=== PATIENT | female | born 1950 | race Caucasian/White ===

== ENCOUNTER → 2016-05-23 | Outpatient (CLI) | payer BC, OTHER ==
[~2016-05-23] MED LIST: AMLO-110 PO; ASPEC81 PO; ATEN-173 PO; ATOR10TA88 PO; ATV1 PO; CLOP1TAB15 PO; GLC5 PO; GLC500 PO; GLIP10TA9 PO; GLIP5TAB3 PO; INSDGI SC; ISOS30TA3 PO; KFL500 PO; LEVO75TA5 PO; LISI-725 PO; LPT/40 PO; METF-384 PO; METO50TA16 PO; MRLP17 PO; MTR600X PO; NRN300 PO; NVLGIPEN SC; RXC5 PO; TNR50 PO; TRAMTAB5 PO; ZNTT/150 PO
[2016-05-23 13:31] LABS: ESTIMATED AVERAGE GLUCOSE 226 mg/dl; HA1C FLAG Normal (Normal)
[2016-05-23 14:04] LABS: ALT/SGPT 33 U/L (12-78); AST/SGOT 18 U/L (15-37); BLOOD UREA NITROGEN 14 mg/dl (7-18); CALCIUM 9.7 mg/dl (8.5-10.1); CARBON DIOXIDE 27 mmol/L (21-32); CHLORIDE 103 mmol/L (98-107); CREATININE 0.79 mg/dl (0.60-1.20); GLUCOSE 177 mg/dl (70-99); POTASSIUM 4.2 mmol/L (3.5-5.1); SODIUM 138 mmol/L (136-145)
[2016-05-23 14:15] LABS: CHOLESTEROL 182 mg/dl (0-200); CHOLESTEROL/HDL RATIO 2.7; HDL CHOLESTEROL 68 mg/dl; TRIGLYCERIDES 92 mg/dl (0-150); VERY LOW DENSITY LIPOPROT CALC 18 mg/dl
== END | disposition home or self-care (01) ==
LOC: C.LABMFLN 11:27
PROVIDERS: ATTEND Family Medicine
DX: E11.9 Type 2 diabetes mellitus without complications (principal); I10 Essential (primary) hypertension

== ENCOUNTER → 2016-09-06 | Outpatient (CLI) | payer OTHER ==
[~2016-09-06] MED LIST changes: +ATOR10TA82 PO; -ATOR10TA88 PO
[2016-09-06 13:32] LABS: HEMATOCRIT 35.5 % (37-47); MEAN CELL VOLUME 84.5 fL (80-100); MEAN CORPUSCULAR HEMOGLOBIN 28.3 pg (25-34); MEAN CORPUSCULAR HGB CONC 33.5 g/dl (32-36); PLATELET COUNT 273 K/uL (130-400); WHITE BLOOD COUNT 3.99 K/uL (4.8-10.8)
[2016-09-06 13:36] LABS: ESTIMATED AVERAGE GLUCOSE 186 mg/dl; HA1C FLAG Normal (Normal)
[2016-09-06 14:22] LABS: BLOOD UREA NITROGEN 14 mg/dl (7-18); BUN/CREATININE RATIO 15.9 (10-20); CARBON DIOXIDE 26 mmol/L (21-32); CHLORIDE 105 mmol/L (98-107); CREATININE 0.85 mg/dl (0.60-1.20); GLUCOSE 111 mg/dl (70-99); POTASSIUM 4.2 mmol/L (3.5-5.1); SODIUM 142 mmol/L (136-145)
[2016-09-06 14:30] LABS: CALCIUM 9.7 mg/dl (8.5-10.1)
[2016-09-06 14:54] LABS: THYROID STIMULATING HORMONE 0.241 uIu/ml (0.300-4.500)
--- NOTE | 2016-09-11 13:29 | CODING QUERY MEDICAL NECESSITY ---
SUPPORTING DIAGNOSIS NEEDED A supporting diagnosis is required for the test/procedure performed on this patient in order for us to be reimbursed by the patient's insurance. Please provide a supporting diagnosis for the following test/procedure listed below next to the test name along with your signature. *If there is no additional diagnosis for this patient that would support the following test/procedure please document that below next to the test/procedure. Test(s)/Procedure(s) that require a supporting diagnosis: * VITAMIN B12 DIAGNOSIS: Provider Signature: Date: Thank you Christina [place] [employer] Once completed, please kindly fax back to [phone] For questions please call [phone]
== END | disposition home or self-care (01) ==
LOC: C.LABMFLN 07:07
PROVIDERS: ATTEND Family Medicine
DX: E11.9 Type 2 diabetes mellitus without complications (principal); R53.83 Other fatigue; E55.9 Vitamin D deficiency, unspecified

== ENCOUNTER 2016-12-10 07:11 | Inpatient (IN) | payer OTHER ==
[2016-11-20 10:07] VITALS: BMI 29.0
--- NOTE | 2016-11-20 10:37 | PAT Medication Instructions ---
Service Date Nov 20, 2016. Current Home Medication List Amlodipine (Norvasc), 5 MG PO HS Aspirin Enteric Coated (Ecotrin Or Generic *), 81 MG PO QAM Atenolol (Atenolol), 50 MG PO HS Atorvastatin (Lipitor), 40 MG PO HS Glipizide (Glucotrol *), 5 MG PO HS Insulin Glargine (Lantus), 24 UNITS SC QPM Levothyroxine Sodium (Levothyroxine Sodium), 1 TAB PO QAM Lisinopril (Zestril), 20 MG PO HS Metformin Hcl (Glucophage), 1,000 MG PO BID Ranitidine (Zantac), 150 MG PO BID Tramadol/Acetaminophen (Ultracet), 1 TAB PO DAILY PRN for Pain Medication Instructions For Your Scheduled Surgery - Hold the following medications 48 hours prior to surgery: Metformin Hcl (Glucophage), 1,000 MG PO BID - Hold the following medications the morning of surgery: Ranitidine (Zantac), 150 MG PO BID - Take the following medications the morning of surgery with a sip of water: Amlodipine (Norvasc), 5 MG PO HS Aspirin Enteric Coated (Ecotrin Or Generic *), 81 MG PO QAM Levothyroxine Sodium (Levothyroxine Sodium), 1 TAB PO QAM Tramadol/Acetaminophen (Ultracet), 1 TAB PO DAILY PRN for Pain (okay to take up to 4 hours prior to surgery if needed) - Hold the following medications as scheduled the night before surgery: Lisinopril (Zestril), 20 MG PO HS - Take the following medications as scheduled the night before surgery: Atenolol (Atenolol), 50 MG PO HS Atorvastatin (Lipitor), 40 MG PO HS Glipizide (Glucotrol *), 5 MG PO HS Insulin Glargine (Lantus), 24 UNITS SC QPM Ranitidine (Zantac), 150 MG PO BID Tramadol/Acetaminophen (Ultracet), 1 TAB PO DAILY PRN for Pain (if needed) If you have any questions please call us at [phone] or [phone] or [phone]
--- NOTE | 2016-11-20 11:22 | DIAGNOSTIC IMAGING REPORT ---
CHEST PREADMISSION(PA/LAT) CLINICAL HISTORY: 65 years-old Female presenting with preoperative examination. TECHNIQUE: PA and lateral views of the chest were obtained. COMPARISON: 09/12/2007. FINDINGS: Cardiomediastinal silhouette normal. Coronary stents noted. Lungs and pleural spaces clear. Osseous structures normal. Upper abdomen normal. IMPRESSION: 1. No acute cardiopulmonary disease. Electronically signed by: Darryl Donovan M.D. 11/20/2016 11:20 AM Dictated Date/Time: 11/20/2016 11:20 AM
[2016-11-20 11:31] LABS: BASO % 0.5 %; BASO ABS # 0.02 K/uL (0-0.2); COMPLETE YES; EOS % 4.4 %; HEMATOCRIT 35.3 % (37-47); IG% 0.3 %; LYMPH % 23.3 %; LYMPH ABS # 0.91 K/uL (1.2-3.4); MEAN CELL VOLUME 85.3 fL (80-100); MEAN CORPUSCULAR HEMOGLOBIN 29.5 pg (25-34); MEAN CORPUSCULAR HGB CONC 34.6 g/dl (32-36); MEAN PLATELET VOLUME 8.8 fL (7.4-10.4); MONO % 7.2 %; NEUT % 64.3 %; PLATELET COUNT 260 K/uL (130-400); RED BLOOD COUNT 4.14 M/uL (4.2-5.4)
[2016-11-20 11:37] LABS: URINE APPEARANCE CLEAR (CLEAR); URINE BILIRUBIN NEG (NEG); URINE COLOR YELLOW; URINE NITRITE POS (NEG); URINE PH 5.5 (4.5-7.5); URINE SPECIFIC GRAVITY 1.018 (1.000-1.030); UROBILINOGEN NEG (NEG); ZZUR CULT IF INDIC CLEAN CATCH YES
[2016-11-20 11:43] LABS: MANUAL MICROSCOPIC REQUIRED? NO; REVIEW REQ? NO
[2016-11-20 11:53] LABS: BUN/CREATININE RATIO 13.7 (10-20); CALCIUM 9.4 mg/dl (8.5-10.1); CREATININE 0.88 mg/dl (0.60-1.20); POTASSIUM 4.7 mmol/L (3.5-5.1)
[2016-12-10] VITALS (10 sets, daily range): BP systolic 126–179; BP diastolic 66–95; PULSE 75–93; TEMP 34.7–36.8; O2SAT 98–100; Ht 167.6 cm; Wt 83.6 kg
[~2016-12-10] VITALS: Ht 167.6 cm; Wt 83.6 kg
[~2016-12-10 07:11] MED LIST changes: -ATEN-173 PO; -ATOR10TA82 PO; -ATV1 PO; +CEFAZOLIN 2000 MG/60 ML D5W 60 ML IV SCH; -CLOP1TAB15 PO; -GLC500 PO; -GLIP10TA9 PO; -GLIP5TAB3 PO; -ISOS30TA3 PO; -KFL500 PO; +LACTATED RINGER'S 1000ML 1,000 ML IV SCH; -METO50TA16 PO; -MRLP17 PO; -MTR600X PO; -NRN300 PO; -NVLGIPEN SC; -RXC5 PO
[2016-12-10] MEDS ORDERED: EpHEDrine SULFATE INJ 50 MG/ML AMP IV PRN (08:00)
[2016-12-10] MEDS ORDERED: ONDANSETRON INJ 2 MG/ML 2 ML VIAL IV PRN ×2 (08:00→11:15)
[2016-12-10] MEDS ORDERED: MoRPHine SULFATE 10 MG/ML CARP/VIAL IV PRN (08:00)
[2016-12-10] MEDS ORDERED: LABETALOL HCL IV 5 MG/ML 20ML IV PRN (08:00)
[2016-12-10] MEDS ORDERED: ATROPINE SULFATE 0.1 MG/ML 5ML SYR IV PRN (08:00)
[2016-12-10] MEDS ORDERED: PHENYLEPHRINE 100MCG/ML 5ML SYR IV PRN (08:00)
[2016-12-10] MEDS ORDERED: NALOXONE HCL 0.4 MG/1 ML VIAL/CARP IV PRN ×3 (08:00→11:15)
[2016-12-10] MEDS ORDERED: FLUMAZENIL 0.1 MG/1 ML 10 ML VIAL IV PRN (08:00)
[2016-12-10] MEDS ORDERED: MEPERIDINE HCL 25 MG/ML CARP IV PRN (08:00)
[2016-12-10] MEDS ORDERED: HYDROmorphone INJ 1 MG/ML SYR IV PRN (08:00)
[2016-12-10] MEDS ORDERED: FENTANYL CITRATE INJ 50 MCG/1 ML 2 ML VIAL ONE ×3 (08:09→10:17)
[2016-12-10] MEDS ORDERED: MIDAZOLAM HCL 1 MG/ML 2ML VIAL ONE (08:09)
[2016-12-10] MEDS ORDERED: NovoLIN-R INSULIN PER UNIT CHARGE ONE ×2 (08:19→09:11)
[2016-12-10] MEDS ORDERED: INSULIN HUMAN REGULAR SC ONE (08:30)
--- NOTE | 2016-12-10 08:33 | History & Physical Bridge Note ---
H&P Re-Evaluation Bridge Note: I have examined the patient, reviewed the History & Physical and in the interval since the performance of the History & Physical I have noted the following changes of clinical significance: No changes noted
--- NOTE | 2016-12-10 08:34 | History and Physical ---
History & Physical Date Dec 10, 2016. Chief Complaint Back and leg pain History of Present Illness The patient is a 65 year old female with complaints of chronic back and leg pain Additional History Hepatic Disease: No Endocrine Disorder: No Kidney Disease: No Hypertension: Yes Heart Disease: No Bleeding Tendencies: No Infectious Diseases: No Allergies Coded Allergies: No Known Allergies (Verified , 11/20/16) Home Medications Scheduled Amlodipine (Norvasc), 5 MG PO HS Aspirin Enteric Coated (Ecotrin Or Generic *), 81 MG PO QAM Atenolol (Atenolol), 50 MG PO HS Atorvastatin (Lipitor), 40 MG PO HS Glipizide (Glucotrol *), 5 MG PO HS Insulin Glargine (Lantus), 24 UNITS SC QPM Levothyroxine Sodium (Levothyroxine Sodium), 1 TAB PO QAM Lisinopril (Zestril), 20 MG PO HS Metformin Hcl (Glucophage), 1,000 MG PO BID Ranitidine (Zantac), 150 MG PO BID Scheduled PRN Tramadol/Acetaminophen (Ultracet), 1 TAB PO DAILY PRN for Pain Physical Examination Skin: warm/dry, no rash Eyes: normal inspection, EOMI, sclerae normal ENT: normal ENT inspection, pharynx normal Head: normocephalic, atraumatic Neck: supple, no adenopathy, trachea midline Respiratory/Chest: lungs clear, normal breath sounds, no respiratory distress Cardiovascular: regular rate, rhythm, no edema, no murmur Abdomen / GI: normal bowel sounds, non tender Back: normal inspection Extremities: normal inspection, normal range of motion Neurologic/Psych: no motor/sensory deficits, alert, normal reflexes, oriented x 3 Diagnosis Lumbar spinal stenosis Plan of Treatment Lumbar decompression and fusion L34 L4 5.
[2016-12-10] MEDS ORDERED: BACITRACIN 50000 UNIT VIAL ONE (08:47)
[2016-12-10] MEDS ORDERED: BUPIVACAINE/EPINEPHRINE 0.5% MPF 1:200,000 30 ML VIAL ONE (08:47)
[2016-12-10] MEDS ORDERED: HYDROmorphone INJ 2 MG/ML SYR/VIAL ONE ×2 (09:27→11:18)
[2016-12-10] MEDS ORDERED: LIDOCAINE HCL 2% 2 ML VIAL (20MG/ML) ONE (11:05)
[2016-12-10] MEDS ORDERED: ROCURONIUM BROMIDE 10 MG/ML 5 ML VIAL IV ONE (11:05)
[2016-12-10] MEDS ORDERED: PROPOFOL IV EMULSION 10 MG/ML 20 ML VIAL IV ONE (11:05)
[2016-12-10] MEDS ORDERED: DEXAMETHASONE SOD INJ 4 MG/ML VIAL ONE (11:05)
[2016-12-10] MEDS ORDERED: ONDANSETRON INJ 2 MG/ML 2 ML VIAL ONE ×2 (11:05→11:18)
[2016-12-10] MEDS ORDERED: FLOSEAL HEMOSTATIC MATRIX 10ML TOP ONE (11:11)
[2016-12-10] MEDS ORDERED: SODIUM CHLORIDE 0.9% 1000ML 1,000 ML IV SCH (11:11)
[2016-12-10] MEDS ORDERED: MAGNESIUM HYDROXIDE SUSP 30 ML UDC PO PRN (11:15)
[2016-12-10] MEDS ORDERED: ACETAMINOPHEN IV 100 ML IV PRN (11:15)
[2016-12-10] MEDS ORDERED: hydrOXYzine HCL 25 MG TAB PO PRN (11:15)
[2016-12-10] MEDS ORDERED: ACETAMINOPHEN 500 MG TAB PO PRN (11:15)
[2016-12-10] MEDS ORDERED: BISACODYL 10 MG SUPP PR PRN (11:15)
[2016-12-10] MEDS ORDERED: DO NOT ADMINISTER FLU VACCINE PRN ×3 (11:15)
[2016-12-10] MEDS ORDERED: ALUMINUM/MAGNESIUM SUSP 30 ML UDC PO PRN (11:15)
[2016-12-10] MEDS ORDERED: PROMETHAZINE HCL INJ 12.5 MG in SODIUM CHLORIDE 0.9% 50ML 50 ML IV PRN (11:15)
[2016-12-10] MEDS ORDERED: LORAZEPAM 0.5 MG TAB PO PRN (11:15)
[2016-12-10] MEDS ORDERED: LORAZEPAM INJ 0.5 MG in SYRINGE 0.75 ML IV PRN (11:15)
[2016-12-10] MEDS ORDERED: METOCLOPRAMIDE HCL INJ 5 MG/ML 2 ML VIAL IV PRN (11:15)
[2016-12-10] MEDS ORDERED: DO NOT ADMINISTER PNEUMOCOCCAL VACCINE PRN ×2 (11:15)
[2016-12-10] MEDS ORDERED: FAMOTIDINE 20 MG TAB PO PRN (11:15)
[2016-12-10] MEDS ORDERED: SOD PHOSPHATE/SOD BIPHOSPHATE ENEMA 132 ML BTL PR PRN (11:15)
[2016-12-10] MEDS ORDERED: KETOROLAC TROMETHAMINE 30 MG/ML VIAL ONE (11:18)
[2016-12-10] MEDS ORDERED: GLYCOPYRROLATE INJ 0.2 MG/ML VIAL ONE (11:18)
[2016-12-10] MEDS ORDERED: NEOSTIGMINE METHYLSULFATE 1 MG/ML 10ML VIAL ONE (11:18)
[2016-12-10] MEDS ORDERED: PHENYLEPHRINE 100MCG/ML 5ML SYR ONE (11:18)
[2016-12-10] MEDS ORDERED: EpHEDrine SULFATE 50MG/5ML SYR ONE (11:18)
--- NOTE | 2016-12-10 11:18 | [facility] Operative Report ---
Operative Report Operative Date Dec 10, 2016. Pre-Operative Diagnosis Lumbar Spinal Stenosis Post-Operative Diagnosis Lumbar Spinal Stenosis Procedure(s) Performed #1 lumbar decompression medial facetectomies foraminotomies L2 3 L3 4 L4 5. #2 posterior spinal fusion L3 4 L4 5. #3 placement of posterior segmental instrumentation L3 4 L4 5. #4 interbody fusion L3 4 L4 5. #5 placement peek cage 12 x 22 mm at L3 4 and L4 5. #6 placement of locally harvested morcellized autograft in the posterior lateral gutters. #7 placement of ostial amp bone graft in the interbody space and posterior lateral gutters. Surgeon Senior Art Director Surgeon(s) Isabella Auguste Estimated Blood Loss 275 ml Findings Severe spinal stenosis with spondylolisthesis Specimens None per surgeon Description of Procedure Patient was met with preoperative early case discussed all questions are dressed. After informed consent patient was taken to the operative suite and intubated and placed in the prone position the Joseph table on top of the Primo frame. All bony prominences were inspected to ensure no external pressure. Lumbar spines prepped and draped nostril fashion. Sharp dissection with the assistance of Bovie cautery was performed onto an exposing the lamina and transverse processes of L3 L4-L5 bilaterally. From a caudal to cephalad fashion complete laminectomy of L4 L3 partial laminectomy of L2 was performed addressing severe lateral recess and foraminal disease. Pedicle screws were then placed in L3 L4-L5 bilaterally with the assistance of fluoroscopy and the probably size niko placed. Through a transforaminal approach on the right compete discectomy of L4 5 was performed and plate created subcortical bleeding bone and a 12 x 22 mm peek cage filled with ostial amp tapped in position. Then proceeded L3 4 and again through a transforaminal approach on the right complete discectomy was performed and plate created to subcortical bleeding bone and a 12 x 22 mm peek cage filled with ostial amp tapped in position. Brought to then locked and final position bilaterally. The transverse processes of L3 L4-L5 burred to subcortical bleeding bone. Remaining ostial amp locally harvested morcellized autograft was placed and posterior gutters. 15 round TELLO drain inserted. Incision was then closed with 1 Vicryl in the fascia 2-0 Vicryl subcutaneous C 4 Monocryl for final skin closure. Steri- Strips sterile dressing placed. Patient we can taken to PACU stable condition. Please note Isabella Boucher was present at the entire procedure involved in patient positioning complex portions of the surgery and final skin closure. I attest to the content of the Intraoperative Record and any orders documented therein. Any exceptions are noted below.
[2016-12-10] MEDS ORDERED: PHARMACY GLYCEMIC MGMT CONSULT PRN (11:22)
[2016-12-10] MEDS ORDERED: HYDROmorphone HCL 0.5MG/ML 50 ML CASSETTE ONE (11:34)
[2016-12-10] MEDS ORDERED: ESMOLOL HCL 10 MG/ML 10 ML VIAL ONE (11:36)
[2016-12-10] MEDS ORDERED: INSULIN GLARGINE SOLOSTAR 100 UNITS/ML 3 ML PEN SC ONE (11:45)
--- NOTE | 2016-12-10 12:05 | Anesthesiology Progress Note ---
Anesthesia Post Op Note Date & Time Dec 10, 2016 at 12:01 Vital Signs Pain Intensity: 0 Vital Signs Past 12 Hours Date Time Temp Pulse Resp B/P (MAP) Pulse Ox O2 Delivery O2 Flow Rate FiO2 12/10/16 11:55 85 14 156/82 99 Oxymask 3 12/10/16 11:45 85 14 170/69 99 Oxymask 10 12/10/16 11:35 85 14 166/73 100 Oxymask 10 12/10/16 11:29 36.4 101 14 166/84 100 Oxymask 10 12/10/16 07:20 36.8 75 20 179/95 98 Room Air Notes Mental Status: alert / awake / arousable, participated in evaluation Pt Amnestic to Procedure: Yes Nausea / Vomiting: adequately controlled Pain: adequately controlled Airway Patency, RR, SpO2: stable & adequate BP & HR: stable & adequate Hydration State: stable & adequate Anesthetic Complications: no major complications apparent The patient did well. She was given 3 units reg insulin SC for BSG 201. Her BSG then went to 220 so she was given 4 units regular insulin IV. A recheck in the OR found it to be 181. In the PACU her BSG went back to 220. She will be on the pharmacy's insulin protocol. 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
--- NOTE | 2016-12-10 12:10 | DIAGNOSTIC IMAGING REPORT ---
INTRAOPERATIVE LUMBAR SPINE 2 VIEWS CLINICAL HISTORY: L3-L5 DECOMPRESSION AND FUSION COMPARISON STUDY: No previous studies for comparison. FINDINGS: 2 intraoperative fluoroscopic spot images are provided for interpretation. 21 seconds of fluoroscopic time was utilized. There are postsurgical changes of an L3-4 and L4-5 discectomy and interbody fusion. There is posterior decompression and pedicle screw fixation with bilateral pedicle screws at the L3, L4, and L5 levels. IMPRESSION: Postsurgical changes as described above. Electronically signed by: Josué Covarrubias M.D. 12/10/2016 12:09 PM Dictated Date/Time: 12/10/2016 12:08 PM
[2016-12-10] MEDS: LACTATED RINGER'S 1000ML 1,000 ML IV SCH ×2 (13:03→18:25)
--- NOTE | 2016-12-10 14:52 | Pharmacy Progress Note ---
Glycemic Control Intl Consult Date of Service Dec 10, 2016. Scope Glycemic Pharmacist consulted by Dr Lopez on 12/10/16 for glycemic control and to write orders per [facility] inpatient glycemic control protocol Objective Weight (Kilograms): 83.600 Accuchecks BSG (last 24hrs): Test 12/10/16 07:32 12/10/16 08:58 12/10/16 10:42 12/10/16 11:46 Bedside Glucose 201 mg/dl (70-90) 221 mg/dl (70-90) 181 mg/dl (70-90) 221 mg/dl (70-90) Recent Pertinent Medications Outpatient Anti-diabetic Regimen: * Lantus 24 units qPM + glipizide 5 mg qHS + metformin 1 gm PO BID * A1c = 8.1 % 09/06/16 Risk Factors for Insulin Resistance: * Steroids: dexamethasone 8 mg IV intraoperatively then dexamethasone 6 mg IV q8 hours x 3 doses * Recent Surgery: POD 0 for lumbar surgery * Diet: type 2 diabetic diet Assessment & Plan ASSESSMENT: * ADA & AACE recommend a goal blood sugar range 140-180 mg/dl for the majority of critically ill & non-critically ill patients. However, more stringent targets may be selected in individual cases. Will utilize more stringent goal of 110-140mg/dl based on patient age & comorbidities. Additionally, tighter glycemic control is warranted to facilitate wound healing. * Ms Joseph is a 65 y/o F admitted 12/10/16 for lumbar surgery. She has a PMH of diabetes that is relatively well controlled. Her blood sugar prior to surgery was 221 mg/dL and she received 7 units of SQ insulin. After surgery, her blood sugar was 181 mg/dL. 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 * Since the patient's blood sugars were already elevated, a full 24 hour weight based stress of 3 Lantus dose was given right after surgery with a sliding scale scheduled for the evening (includes doses for weight based stress of 1,2, and 3 based upon blood sugars). A morning Lantus dose will be scheduled based upon the patient's needs as currently it is unclear. * For Novolog parameters, weight-based stress of 3 was chosen along with overnight Accuchecks. Oral medications will be held. PLAN FOR INPATIENT GLYCEMIC CONTROL: * Holding outpatient oral diabetes medications * Basal insulin with LANTUS 40 units SQ x 1 then Lantus 10-20 units tonight (10 units if blood sugar less than 100 mg/dL; 15 units if blood sugar 100-160 mg/dL ; 20 units if blood sugar greater than 160 mg/dL) * Correctional Insulin with NOVOLOG per scale ACHS or Q6hrs while NPO * Goal Range: Low 110 mg/dL - High 140 mg/dL * Correction Factor: 20 mg/dL/unit * Nutritional / Prandial insulin per carb ratio of 1 unit per 6 grams CHO consumed * Please note that the plan above was derived based on current level of insulin resistance and hospital stress. These recommendations are appropriate for inpatient admission only. Plan of care upon discharge will need to be reassessed to avoid potential outpatient hypo/hyperglycemia. Thank you.
[2016-12-10] MEDS: HYDROmorphone HCL 0.5MG/ML 50 ML CASSETTE IV PRN ×2 (15:17→23:16)
[2016-12-10] MEDS: INSULIN ASPART 100 UNITS/ML 3 ML PEN SC SCH ×3 (15:30→21:08)
[2016-12-10] MEDS: CEFAZOLIN IV 2,000 MG in DEXTROSE 5% 50ML 50 ML IV SCH (15:45)
[2016-12-10] MEDS ORDERED: INSULIN HUMAN REGULAR IV BOLUS 5 UNIT in SYRINGE 0 ML IV ONE (18:00)
[2016-12-10] MEDS: DOCUSATE SODIUM/SENNA 50/8.6MG TAB PO SCH (20:57)
[2016-12-10] MEDS: ATORVASTATIN 40 MG TAB PO SCH (20:58)
[2016-12-10] MEDS: DEXAMETHASONE INJ 6 MG in SYRINGE 0 ML IV SCH (20:58)
[2016-12-10] MEDS: AMLODIPINE BESYLATE 5 MG TAB PO SCH (20:58)
[2016-12-10] MEDS: RANITIDINE HCL 150 MG TAB PO SCH (21:01)
[2016-12-10] MEDS: LISINOPRIL 20 MG TAB PO SCH (21:01)
[2016-12-10] MEDS: INSULIN GLARGINE SOLOSTAR 100 UNITS/ML 3 ML PEN SC SCH (21:09)
[2016-12-10] MEDS ORDERED: COUGH DROP (SUGAR FREE) LOZ 24 LOZ/1 BOX PO PRN (22:15)
[2016-12-11] MEDS: CEFAZOLIN IV 2,000 MG in DEXTROSE 5% 50ML 50 ML IV SCH (00:26)
[2016-12-11] MEDS: LACTATED RINGER'S 1000ML 1,000 ML IV SCH (00:27)
[2016-12-11] MEDS: INSULIN ASPART 100 UNITS/ML 3 ML PEN SC SCH ×5 (00:29→18:47)
[2016-12-11 03:15] VITALS: BP 126/72; PULSE 73; TEMP 36.5; O2SAT 99
[2016-12-11] MEDS: DEXAMETHASONE INJ 6 MG in SYRINGE 0 ML IV SCH ×2 (04:18→11:58)
[2016-12-11] MEDS ORDERED: NURSING VERBAL MED ORDER ONE (05:30)
[2016-12-11] MEDS: LEVOTHYROXINE 75 MCG TAB PO SCH (05:40)
[2016-12-11] MEDS: OXYCODONE HCL IR 5 MG TAB (IMMEDIATE RELEASE) PO PRN ×3 (05:54→21:10)
[2016-12-11 05:55] LABS: COMPLETE YES; HEMATOCRIT 25.5 % (37-47); IG% 0.3 %; LYMPH % 6.6 %; MEAN CELL VOLUME 82.8 fL (80-100); MEAN CORPUSCULAR HEMOGLOBIN 29.9 pg (25-34); MEAN CORPUSCULAR HGB CONC 36.1 g/dl (32-36); MONO % 4.2 %; NEUT % 88.9 %; PLATELET COUNT 212 K/uL (130-400); RED BLOOD COUNT 3.08 M/uL (4.2-5.4); WHITE BLOOD COUNT 7.57 K/uL (4.8-10.8)
[2016-12-11] MEDS ORDERED: TRAMADOL/ACETAMINOPHEN 37.5/325MG TAB PO PRN (06:00)
[2016-12-11] MEDS ORDERED: HYDROmorphone INJ 0.5 MG/0.5 ML SYR IV PRN (06:00)
[2016-12-11] MEDS ORDERED: DC PCA ONE (06:00)
[2016-12-11 06:28] LABS: BUN/CREATININE RATIO 26.7 (10-20); CALCIUM 8.9 mg/dl (8.5-10.1); CREATININE 0.63 mg/dl (0.60-1.20); POTASSIUM 4.4 mmol/L (3.5-5.1)
[2016-12-11 07:52] VITALS: BP 126/74; PULSE 67; TEMP 36.7; O2SAT 99
--- NOTE | 2016-12-11 08:13 | Anesthesiology Progress Note ---
Anesthesia Post Op Note Date & Time Dec 11, 2016 at 08:13 Vital Signs Vital Signs Past 12 Hours Date Time Temp Pulse Resp B/P (MAP) Pulse Ox O2 Delivery O2 Flow Rate FiO2 12/11/16 07:52 36.7 67 16 126/74 (91) 99 Room Air 12/11/16 07:42 Room Air 12/11/16 03:15 36.5 73 16 126/72 (90) 99 Room Air 12/11/16 00:00 Room Air 12/10/16 23:09 36.5 87 16 126/66 (86) 99 Room Air 12/10/16 21:00 89 133/74 (93) Notes Mental Status: alert / awake / arousable, participated in evaluation Pt Amnestic to Procedure: Yes Nausea / Vomiting: adequately controlled Pain: adequately controlled Airway Patency, RR, SpO2: stable & adequate BP & HR: stable & adequate Hydration State: stable & adequate Anesthetic Complications: no major complications apparent
[2016-12-11] MEDS: RANITIDINE HCL 150 MG TAB PO SCH ×2 (08:20→21:09)
[2016-12-11] MEDS: ASPIRIN 81 MG ECTAB PO SCH (08:20)
--- NOTE | 2016-12-11 08:30 | Progress Note ---
Progress Note Date of Service Dec 11, 2016. Progress Note Back pain well controlled. Leg pain markedly improved. Vital signs are stable. TELLO drain decreasing appropriately. On exam she is in chair at bedside as good strength testing appears comfortable. Assessment status post lumbar decompression fusion replant this time initiate physical therapy advance her bowel regiment anticipate possible home tomorrow with home health.
[2016-12-11] MEDS ORDERED: INSULIN GLARGINE SOLOSTAR 100 UNITS/ML 3 ML PEN SC SCH (09:00)
--- NOTE | 2016-12-11 09:25 | Pharmacy Progress Note ---
Glycemic Control Progress Note Date of Service Dec 11, 2016. Scope Glycemic Pharmacist consulted for glycemic control to write orders per [facility] inpatient glycemic control protocol. Objective Accuchecks BSG (last 24hrs): Test 12/10/16 10:42 12/10/16 11:46 12/10/16 16:59 12/10/16 20:58 Bedside Glucose 181 mg/dl (70-90) 221 mg/dl (70-90) 307 mg/dl (70-90) 257 mg/dl (70-90) Test 12/11/16 00:24 12/11/16 04:16 12/11/16 05:36 12/11/16 07:59 Bedside Glucose 220 mg/dl (70-90) 228 mg/dl (70-90) 223 mg/dl (70-90) Random Glucose 211 mg/dl (70-99) Recent Pertinent Medications Outpatient Anti-diabetic Regimen: * Lantus 24 units qPM + glipizide 5 mg qHS + metformin 1 gm PO BID * A1c = 8.1 % 09/06/16 Risk Factors for Insulin Resistance: * Steroids: dexamethasone 8 mg IV intraoperatively then dexamethasone 6 mg IV q8 hours x 3 doses (last dose noon today) * Recent Surgery: POD 1 for lumbar surgery * Diet: type 2 diabetic diet Outpatient Anti-Diabetic Meds see above Assessment & Plan ASSESSMENT: * ADA & AACE recommend a goal blood sugar range 140-180 mg/dl for the majority of critically ill & non-critically ill patients. However, more stringent targets may be selected in individual cases. Will utilize more stringent goal of 110-140mg/dl based on patient age & comorbidities. Additionally, tighter glycemic control is warranted to facilitate wound healing. * Ms Joseph is a 65 y/o F admitted 12/10/16 for lumbar surgery. She has a PMH of diabetes that is relatively well controlled. 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 * Yesterday, the patient received Lantus 40 units soon after surgery (~1230) which was a full 24 hour dose of weight-based stress of 3 plus an additional weight based stress of 3 half dose or Lantus 20 units. Patient required a dose of IV insulin with dinner (blood sugar 307 mg/dL). Today, the fasting blood sugar is 223 mg/dL. She received an extra 9 units of Novolog overnight. Will add this to the weight-based stress of 3 dosing to give Lantus 30 units this morning. Continue same scale as yesterday tonight with slight alterations. * For Novolog, it is apparent that the weight-based stress of 3 was not effective. Will tighten both parameters slightly. Add overnight Accuchecks to ensure 24 hour coverage with weight-based stress of 3 parameters. PLAN FOR INPATIENT GLYCEMIC CONTROL: * Holding outpatient oral diabetes medications --> plan to restart tomorrow after adequate oral intake established * Basal insulin with LANTUS 30 units SQ x 1 then Lantus 10-20 units tonight (10 units if blood sugar less than 100 mg/dL; 15 units if blood sugar 100-180 mg/dL ; 20 units if blood sugar greater than 180 mg/dL) * Correctional Insulin with NOVOLOG per scale ACHS or Q6hrs while NPO * Goal Range: Low 110 mg/dL - High 140 mg/dL * TIGHTEN Correction Factor to 15 mg/dL/unit then overnight 20 mg/dL/unit * TIGHTEN Nutritional / Prandial insulin per carb ratio to 1 unit per 5 grams CHO consumed then overnight 1 unit per 6 grams CHO consumed * Please note that the plan above was derived based on current level of insulin resistance and hospital stress. These recommendations are appropriate for inpatient admission only. Plan of care upon discharge will need to be reassessed to avoid potential outpatient hypo/hyperglycemia. Thank you.
[2016-12-11 11:30] VITALS: BP 127/76; PULSE 69; TEMP 36.8; O2SAT 98
[2016-12-11] MEDS ORDERED: INSULIN HUMAN REGULAR IV BOLUS 5 UNIT in SYRINGE 0 ML IV SCH (12:30)
[2016-12-11 15:03] VITALS: BP 135/49; PULSE 67; TEMP 36.9; O2SAT 98
[2016-12-11] MEDS ORDERED: INSULIN REGULAR 8 UNITS in SYRINGE 7.92 ML IV ONE (20:45)
[2016-12-11] MEDS ORDERED: INSULIN ASPART 100 UNITS/ML 3 ML PEN SC SCH (21:00)
[2016-12-11] MEDS: LISINOPRIL 20 MG TAB PO SCH (21:08)
[2016-12-11] MEDS: AMLODIPINE BESYLATE 5 MG TAB PO SCH (21:08)
[2016-12-11] MEDS: ATORVASTATIN 40 MG TAB PO SCH (21:09)
[2016-12-11] MEDS: DOCUSATE SODIUM/SENNA 50/8.6MG TAB PO SCH (21:09)
[2016-12-11] MEDS: INSULIN GLARGINE SOLOSTAR 100 UNITS/ML 3 ML PEN SC SCH (21:16)
[2016-12-11 23:11] VITALS: BP 131/62; PULSE 76; TEMP 36.8; O2SAT 99
[2016-12-12] MEDS: INSULIN ASPART 100 UNITS/ML 3 ML PEN SC SCH ×4 (00:12→12:42)
[2016-12-12] MEDS: LEVOTHYROXINE 75 MCG TAB PO SCH (06:18)
[2016-12-12] MEDS: POLYETHYLENE (MIRALAX) 17 GM PACK PO SCH ×2 (06:18→12:38)
[2016-12-12 06:42] VITALS: BP 146/74; PULSE 58; TEMP 36.5; O2SAT 100
[2016-12-12 07:12] VITALS: BP 146/78; PULSE 57; TEMP 36.8; O2SAT 100
[2016-12-12] MEDS: RANITIDINE HCL 150 MG TAB PO SCH (07:30)
[2016-12-12] MEDS: ASPIRIN 81 MG ECTAB PO SCH (07:30)
[2016-12-12] MEDS: OXYCODONE HCL IR 5 MG TAB (IMMEDIATE RELEASE) PO PRN ×2 (07:38→14:48)
[2016-12-12] MEDS ORDERED: RXC5 PO (07:38)
--- NOTE | 2016-12-12 07:39 | Discharge Instructions ---
Discharge Instructions Date of Service Dec 12, 2016. Admission Reason for Admission: Lumbar Spinal Stenosis Discharge Discharge Diagnosis / Problem: lumbar stenosis Discharge Goals Goal(s): Improve function Activity Recommendations Activity Limitations: per Instructions/Follow-up section . Instructions / Follow-Up Instructions / Follow-Up ACTIVITY RECOMMENDATIONS: SELF CARE INSTRUCTIONS AFTER THORACIC/LUMBAR FUSIONS 1. You may walk to your tolerance. It is good exercise for your legs and back. Expect some back and intermittent leg aches and pains. 2. You may perform "counter-top" level activities (make a sandwich, darwin with a project, etc.). 3. No bending or lifting of more than 10 pounds or back twisting of any nature (roll like a log when turning in bed). 4. You may ride in a car for 20-30 minutes at a time. No driving until after your first visit with your doctor. 5. Frequent changes of position and restricting sitting to 30 minutes at a time will help limit the amount of back spasms and stiffness you may experience. 6. You may discontinue the use of ambulatory aids (cane, crutches, etc.) once your strength and confidence allow. 7. You may assistant chief engineer the shower and let water strike your incision when you arrive home at least once daily. Do not take a tub bath, sit in a hot tub or go into a swimming pool until after your first recheck in the office. SPECIAL CARE INSTRUCTIONS: VERY IMPORTANT TO READ AND REVIEW A. Your surgical incision has been closed with a cosmetic suture under the skin that will dissolve in about 6 weeks. In 14 days, you can use a pair of clean scissors and cut the suture that is left outside of the skin at the ends of your incision. 1. The small skin tapes can be removed 7 days after surgery if they have not fallen off by that point. 2. You may keep the wound open to air as much as possible to promote healing after post-op day number 5 unless told otherwise by your doctor. 3. If you think the wound looks like it is becoming infected (redness or worsening drainage) and/or you are experiencing fever, chill or worsening back pain and muscle spasms, contact the office so that we may evaluate you as soon as possible. B. Complications are uncommon, but please contact us if you have any signs or symptoms of: 1. wound infection (fever higher than 102.5 degrees F, redness, separation of wound, drainage, or increasing pain from the incision) 2. blood clots in legs (pain, swelling, redness and warmth in legs) 3. urinary tract infection (fever higher than 102.5 degrees F, burning upon urination or increased frequency of urination) 4. nerve problems (inability to walk on your toes or heels, numbness, loss of bowel or bladder control) 5. any other symptoms that concern you C. Please call the office at if you have any concerns or questions about your operation or recovery. D. No smoking! Smoking drastically decreases the chance of a solid fusion. E. Do not take any anti-inflammatory medications (Indocin, Advil, Motrin, Aspirin, Naprosyn, etc.) as these may inhibit the chance of a solid fusion. Tylenol is okay to take for pain. MANAGING PAIN AFTER SPINAL SURGERY 1. Narcotic medication is intended for short-term use and will be provided for surgical pain. Surgical pain usually lasts for a period of 4-6 weeks. Narcotic medication includes Percocet, Vicodin, Darvocet, Tylenol #3 or Lortab. 2. Longer-term pain is more appropriately treated with non-narcotic medication such as Tylenol ES. 3. Muscle spasm is not appropriately treated with narcotics. Muscle relaxers such as Soma, Flexeril or Skelaxin can be used along with Tylenol ES. 4. Remember that we all live with some "aches and pains". This is not unusual or uncommon after an injury or as we get older. a. Back pain is expected and may include muscle spasms for 4 to 6 weeks after surgery. The pain should gradually improve. If the pain worsens for no apparent reason, please contact the office. b. Intermittent leg pain may also be experienced and should not be concerned about unless it worsens for no apparent reason. If so, please contact the office. 5. We will provide appropriate medication within the normal guidelines of their prescribed use. We will also be very cautious and aware of potential abuse and extended duration of patients' medication needs. a. Pain medications are for your comfort and to assist with sleep and rest so that the tissue can heal. They are not provided in order to return to normal activity and should not be used through the day. To do so or worsening pain at night can result from ongoing tissue damage and development of tolerance to the prescribed medicine. 6. Please allow 2-3 days to process refills. Prescriptions will not be mailed but must be picked up at the office. FOLLOW UP VISIT: Keep your scheduled follow-up appointment. Any questions, please call the office at . Current Hospital Diet Patient's current hospital diet: Diabetes Type 2 Diet Discharge Diet Recommended Diet: Regular Diet Procedures Procedures Performed: #1 lumbar decompression medial facetectomies foraminotomies L2 3 L3 4 L4 5. #2 posterior spinal fusion L3 4 L4 5. #3 placement of posterior segmental instrumentation L3 4 L4 5. #4 interbody fusion L3 4 L4 5. #5 placement peek cage 12 x 22 mm at L3 4 and L4 5. #6 placement of locally harvested morcellized autograft in the posterior lateral gutters. #7 placement of ostial amp bone graft in the interbody space and posterior lateral gutters. Pending Studies Studies pending at discharge: no Medical Emergencies . Who to Call and When: Medical Emergencies: If at any time you feel your situation is an emergency, please call 911 immediately. . Non-Emergent Contact Non-Emergency issues call your: Primary Care Provider . "Provider Documentation" section prepared by Jeffry Lopez. . VTE Core Measure Inpt VTE Proph given/why not?: Linnette Scales, SCD's
--- NOTE | 2016-12-12 07:40 | Clinical Documentation Query ---
CLINICAL DOCUMENTATION QUERY The H&P seems inaccurate in the description of patients past medical history. The H&P states only that this patient has hypertension. However patient's EMAR and/or Med reconciliation show this patient takes SS insulin coverage, Glucophage, glipizide, Levothyroxine, & Lipitor. In your clinical opinion is this patient being managed for: ( ) Hypothyroidism ( ) Type II DM ( ) Hyperlipidemia ( ) Not Agree ( ) Other explanation of clinical findings (Please Explain) ( ) Unable to determine (Please Define) ( ) Need to Discuss The medical record reflects the following clinical findings, treatment, and risk factors. Clinical Indicators: As above. Treatment: As above. Risk Factors: Age, Please clarify and document your clinical opinion in the progress notes and discharge summary. Terms such as "probable", "suspected", "likely", "questionable", "possible", or "still to be ruled out" are acceptable. IF IN AGREEMENT, YOU MUST DOCUMENT ABOVE DIAGNOSTIC STATEMENT IN DAILY PROGRESS NOTES AND DISCHARGE SUMMARY. This document is not part of the patient's record. Thank You, Srikanth Stanley, RN [phone]
[2016-12-12] MEDS ORDERED: METFORMIN HCL 500 MG TAB PO SCH (08:30)
[2016-12-12 13:18] VITALS: BP 146/78; PULSE 57; TEMP 36.8; O2SAT 100
--- NOTE | 2016-12-12 14:36 | Pharmacy Progress Note ---
Glycemic Control Progress Note Date of Service Dec 12, 2016. Scope Glycemic Pharmacist consulted for glycemic control to write orders per [facility] inpatient glycemic control protocol. Objective Accuchecks BSG (last 24hrs): Test 12/11/16 16:56 12/11/16 20:27 12/12/16 00:09 12/12/16 03:59 Bedside Glucose 197 mg/dl (70-90) 310 mg/dl (70-90) 289 mg/dl (70-90) 182 mg/dl (70-90) Test 12/12/16 06:33 12/12/16 11:46 Bedside Glucose 70 mg/dl (70-90) 81 mg/dl (70-90) Recent Pertinent Medications Outpatient Anti-diabetic Regimen: * Lantus 24 units qPM + glipizide 5 mg qHS + metformin 1 gm PO BID * A1c = 8.1 % 09/06/16 Risk Factors for Insulin Resistance: * Steroids: dexamethasone 8 mg IV intraoperatively then dexamethasone 6 mg IV q8 hours x 3 doses (last dose noon yesterday) * Recent Surgery: POD 2 for lumbar surgery * Diet: type 2 diabetic diet Outpatient Anti-Diabetic Meds see previous Assessment & Plan ASSESSMENT: * ADA & AACE recommend a goal blood sugar range 140-180 mg/dl for the majority of critically ill & non-critically ill patients. However, more stringent targets may be selected in individual cases. Will utilize more stringent goal of 110-140mg/dl based on patient age & comorbidities. Additionally, tighter glycemic control is warranted to facilitate wound healing. * Ms Joseph is a 65 y/o F admitted 12/10/16 for lumbar surgery. She has a PMH of diabetes that is relatively well controlled. 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 * Yesterday, the patient received 119 units of insulin plus 13 units IV insulin (received 50 units of basal insulin and 69 units of bolus). She received 13 units overnight. Lasting night patient was 310 mg/dL and this morning the fasting is 70 mg/dL. Change Lantus to once daily regimen at bedtime with a scale. Loosened Novolog coverage with breakfast --> patient's blood sugar went up slightly and then loosened to weight based stress of 2-3 Novolog coverage. This is reasonable for the day after dexamethasone administration. Patient does have much Lantus onboard but this should help the patient tolerate the remaining effects of dexamethasone. 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 Added 0200 accucheck to ensure patient is not too low or underdosed for evening. Changed goal range to 140-180 mg/dL to ensure she is not overcorrected. PLAN FOR INPATIENT GLYCEMIC CONTROL: * metformin 1000 mg PO BID with meals * Basal insulin with LANTUS 0-24 units SQ qHS (Lantus 0 units if blood sugar less than 120 mg/dL; Lantus 15 units if blood sugar 120-160 mg/dL; Lantus 24 units if blood sugar greater than 160 mg/dL) * Correctional Insulin with NOVOLOG per scale ACHS or Q6hrs while NPO * Goal Range: Low 110 mg/dL - High 140 mg/dL * LOOSEN Correction Factor to 25 mg/dL/unit then overnight 30 mg/dL/unit * LOOSEN Nutritional / Prandial insulin per carb ratio to 1 unit per 8 grams CHO consumed then overnight 1 unit per 10 grams CHO consumed Discharge Recommendations * Patient's HbA1C is slightly higher than a typical goal of 6.6-7.5% based upon Elements of Diabetes Care Scoring Scale from the ADA. Recommend addition of Novolog with largest meal of the day. Recommend discontinuing glipizide with insulin use as can increase rate of hypoglycemia. Thank you.
--- NOTE | 2016-12-12 14:50 | Discharge Summary ---
Orthopedic Discharge Summary Admission Date/Reason Dec 10, 2016 at 08:30 Lumbar Spinal Stenosis. Discharge Date/Disposition Dec 12, 2016 Home with services Diagnosis Principal Diagnosis: Lumbar spinal stenosis Admission Physical Exam As per Admitting History & Physical. Hospital Course Patient underwent multilevel lumbar decompression fusion tolerated this well as taken to the orthopedic floor postoperatively. Postoperatively she was up and amatory progressed nicely leg pain markedly improved substernally discharge home discharge orders and instructions found on the chart for further review. Discharge Instructions Please refer to the electronic Patient Visit Report (Discharge Instructions) for additional information.
[2016-12-12 15:15] VITALS: BP 133/75; PULSE 61; TEMP 36.8; O2SAT 100
[2016-12-12] MEDS ORDERED: INSULIN GLARGINE SOLOSTAR 100 UNITS/ML 3 ML PEN SC SCH (21:00)
[2016-12-13] MEDS ORDERED: INSULIN ASPART 100 UNITS/ML 3 ML PEN SC SCH (02:00)
== END 2016-12-12 15:50 | disposition home health service (06) | DRG 460 ==
LOC: C.ACU 07:11 → C.3E 08:30 → ENRESERV 11:54
PROVIDERS: ADMIT Orthopaedic Surgery Orthopaedic Surgery of the Spine; ATTEND Orthopaedic Surgery Orthopaedic Surgery of the Spine
PROC: 0SG1071 Fusion of 2 or more Lumbar Vertebral Joints with Autologous Tissue Substitute, Posterior Approach, Posterior Column, Open Approach (ICD-10-PCS; principal; 2016-12-10 09:15)
PROC: 01NB0ZZ Release Lumbar Nerve, Open Approach (ICD-10-PCS; principal; 2016-12-10 09:15)
PROC: 0ST20ZZ Resection of Lumbar Vertebral Disc, Open Approach (ICD-10-PCS; principal; 2016-12-10 09:15)
PROC: 0SG10AJ Fusion of 2 or more Lumbar Vertebral Joints with Interbody Fusion Device, Posterior Approach, Anterior Column, Open Approach (ICD-10-PCS; principal; 2016-12-10 09:15)
DX: M48.06 Spinal stenosis, lumbar region (principal); E11.65 Type 2 diabetes mellitus with hyperglycemia; I25.10 Atherosclerotic heart disease of native coronary artery without angina pectoris; I10 Essential (primary) hypertension; E78.5 Hyperlipidemia, unspecified; K21.9 Gastro-esophageal reflux disease without esophagitis; I25.2 Old myocardial infarction; Z79.82 Long term (current) use of aspirin; Z79.4 Long term (current) use of insulin; Z79.84 Long term (current) use of oral hypoglycemic drugs; Z79.891 Long term (current) use of opiate analgesic; Z79.899 Other long term (current) drug therapy

== ENCOUNTER → 2016-12-17 | Outpatient (CLI) | payer OTHER ==
[~2016-12-17] MED LIST changes: +ATV1 PO; -CEFAZOLIN 2000 MG/60 ML D5W 60 ML IV SCH; +GLIP10TA9 PO; +GLIP5TAB3 PO; +KFL500 PO; -LACTATED RINGER'S 1000ML 1,000 ML IV SCH; +MRLP17 PO; +MTR600X PO; +NRN300 PO; +NVLGIPEN SC; +RXC5 PO
[2016-12-17 13:48] LABS: BASO % 0.1 %; BASO ABS # 0.01 K/uL (0-0.2); COMPLETE YES; EOS % 0.6 %; HEMATOCRIT 28.8 % (37-47); IG% 1.3 %; LYMPH % 11.2 %; LYMPH ABS # 1.05 K/uL (1.2-3.4); MEAN CELL VOLUME 84.7 fL (80-100); MEAN CORPUSCULAR HEMOGLOBIN 28.5 pg (25-34); MEAN CORPUSCULAR HGB CONC 33.7 g/dl (32-36); MEAN PLATELET VOLUME 8.4 fL (7.4-10.4); MONO % 10.4 %; NEUT % 76.4 %; PLATELET COUNT 403 K/uL (130-400); WHITE BLOOD COUNT 9.41 K/uL (4.8-10.8)
== END | disposition home or self-care (01) ==
LOC: C.LABSPEC 13:12
DX: M48.06 Spinal stenosis, lumbar region (principal)

== ENCOUNTER 2016-12-20 14:44 | Inpatient (IN) | payer OTHER ==
[~2016-12-20] VITALS: Ht 165.1 cm; Wt 83.2 kg
[~2016-12-20 14:44] MED LIST changes: -ATV1 PO; -GLIP10TA9 PO; -GLIP5TAB3 PO; -KFL500 PO; -MRLP17 PO; -MTR600X PO; -NRN300 PO; -NVLGIPEN SC
[2016-12-20] MEDS ORDERED: SODIUM CHLORIDE 0.9% 1000ML 1,000 ML IV STA (15:18)
[2016-12-20] MEDS ORDERED: ONDANSETRON INJ 2 MG/ML 2 ML VIAL IV STA (15:18)
--- NOTE | 2016-12-20 15:22 | EMERGENCY ROOM VISIT NOTE ---
History Report prepared by Kelli: Tony Sloan Under the Supervision of: Dr. Braulio Graf M.D. First contact with patient: 15:11 Chief Complaint: BACK PAIN Stated Complaint: FALL/BACK PAIN History of Present Illness The patient is a 66 year old female who presents to the Emergency Room with complaints of persistent low back pain that started 5 days ago. She says that she had lumbar surgery [address] Lopez of [facility], and was discharged 7 days ago. The patient states that she was in the bathroom 5 days ago, and all of a sudden she had terrible back pain that came out of nowhere, which radiated down her right leg. She says that she had to be in bed all day from 4 days ago until yesterday. The patient adds that she has pain down both legs, but it is worse down her right leg. The patient states that she was told to come here. She has been taking 10 mg of Oxy for pain since the surgery. The patient denies any fevers. Source of History: patient Onset: 5 days ago Position: back (lower) Symptom Intensity: sudden onset Timing: other (persistent) Associated Symptoms: No fevers Note: Associated symptoms: Leg pain bilaterally, right worse than left. Review of Systems See HPI for pertinent positives & negatives. A total of 10 systems reviewed and were otherwise negative. Past Medical & Surgical Medical Problems: (1) Intractable back pain (2) Lumbar stenosis with neurogenic claudication Family History FH: heart disease Social History Smoking Status: Never Smoker Marital Status: Occupation Status: retired Current/Historical Medications Scheduled Amlodipine (Norvasc), 5 MG PO HS Aspirin (Aspirin EC Low Dose), 81 MG PO DAILY Atenolol (Atenolol), 50 MG PO HS Atorvastatin (Lipitor), 40 MG PO HS Glipizide (Glucotrol), 1 TAB PO DAILY Glipizide (Glucotrol), 10 MG PO BID Insulin Glargine (Lantus), 24 UNITS SC QPM Levothyroxine Sodium (Levothyroxine Sodium), 1 TAB PO QAM Lisinopril (Zestril), 20 MG PO HS Metformin Hcl (Glucophage), 1,000 MG PO BID Ranitidine (Zantac), 150 MG PO BID Scheduled PRN Oxycodone HCl (Oxycodone HCl), 5-10 MG PO Q4H PRN for Moderate - severe pain Tramadol/Acetaminophen (Ultracet), 1 TAB PO DAILY PRN for Pain Allergies Coded Allergies: No Known Allergies (Verified , 11/20/16) Physical Exam Vital Signs Date Time Temp Pulse Resp B/P (MAP) Pulse Ox O2 Delivery O2 Flow Rate FiO2 12/20/16 14:53 37.1 76 18 166/68 94 Room Air Physical Exam GENERAL: Patient is in no acute distress. HEENT: No acute trauma, normocephalic atraumatic, mucous membranes moist, no nasal congestion, no scleral icterus. NECK: No stridor, no adenopathy, no meningismus, trachea is midline. LUNGS: Clear to auscultation bilaterally, no wheeze, no rhonchi, breath sounds equal. HEART: Without murmurs gallops or rubs, regular rate and rhythm. BACK: Lower back incision appears to be healing well with no signs of infection or drainage. Movement worsens the lower back pain. ABDOMEN: Soft, nontender, bowel sounds positive, no hernias, no peritonitis. EXTREMITIES: No cyanosis or edema, full range of motion of all the joints without pain or difficulty, no signs for acute trauma. NEUROLOGIC: Oriented x 3, no acute motor or sensory deficits, no focal weakness. SKIN: No rash, no jaundice, no diaphoresis. Medical Decision & Procedures Laboratory Results 12/20/16 15:06 Red Blood Count 3.27, Mean Corpuscular Volume 84.1, Mean Corpuscular Hemoglobin 28.4, Mean Corpuscular Hemoglobin Concent 33.8, Mean Platelet Volume 7.8, Neutrophils (%) (Auto) 87.3, Lymphocytes (%) (Auto) 5.8, Monocytes (%) (Auto) 5.9, Eosinophils (%) (Auto) 0.3, Basophils (%) (Auto) 0.1, Neutrophils # (Auto) 12.57, Lymphocytes # (Auto) 0.83, Monocytes # (Auto) 0.85, Eosinophils # (Auto) 0.04, Basophils # (Auto) 0.02 12/20/16 15:06 Test 12/20/16 15:06 White Blood Count 14.39 K/uL (4.8-10.8) Red Blood Count 3.27 M/uL (4.2-5.4) Hemoglobin 9.3 g/dL (12.0-16.0) Hematocrit 27.5 % (37-47) Mean Corpuscular Volume 84.1 fL (80-100) Mean Corpuscular Hemoglobin 28.4 pg (25-34) Mean Corpuscular Hemoglobin Concent 33.8 g/dl (32-36) Platelet Count 418 K/uL (130-400) Mean Platelet Volume 7.8 fL (7.4-10.4) Neutrophils (%) (Auto) 87.3 % Lymphocytes (%) (Auto) 5.8 % Monocytes (%) (Auto) 5.9 % Eosinophils (%) (Auto) 0.3 % Basophils (%) (Auto) 0.1 % Neutrophils # (Auto) 12.57 K/uL (1.4-6.5) Lymphocytes # (Auto) 0.83 K/uL (1.2-3.4) Monocytes # (Auto) 0.85 K/uL (0.11-0.59) Eosinophils # (Auto) 0.04 K/uL (0-0.5) Basophils # (Auto) 0.02 K/uL (0-0.2) RDW Standard Deviation 38.2 fL (36.4-46.3) RDW Coefficient of Variation 12.3 % (11.5-14.5) Immature Granulocyte % (Auto) 0.6 % Immature Granulocyte # (Auto) 0.08 K/uL (0.00-0.02) Urine Color YELLOW Urine Appearance CLOUDY (CLEAR) Urine pH 5.0 (4.5-7.5) Urine Specific Mcdonald 1.028 (1.000-1.030) Urine Protein TRACE (NEG) Urine Glucose (UA) 3+ (NEG) Urine Ketones NEG (NEG) Urine Occult Blood TRACE (NEG) Urine Nitrite NEG (NEG) Urine Bilirubin NEG (NEG) Urine Urobilinogen NEG (NEG) Urine Leukocyte Esterase MODERATE (NEG) Urine WBC (Auto) >30 /hpf (0-5) Urine RBC (Auto) 0-4 /hpf (0-4) Urine Hyaline Casts (Auto) 1-5 /lpf (0-5) Urine Epithelial Cells (Auto) >30 /lpf (0-5) Urine Bacteria (Auto) 4+ (NEG) Anion Gap 7.0 mmol/L (3-11) Est Creatinine Clear Calc Drug Dose 70.2 ml/min Estimated GFR () 83.9 Estimated GFR (Non- 72.4 BUN/Creatinine Ratio 22.8 (10-20) Calcium Level 9.7 mg/dl (8.5-10.1) Beta-Hydroxybutyric Acid 1.63 mg/dL (0.2-2.81) Laboratory results reviewed by me. Medications Administered Medications (Trade) Dose Ordered Sig/Ovidio Route Start Time Stop Time Status Last Admin Dose Admin Morphine Sulfate (MoRPHine SULFATE INJ) 4 mg Q15M PRN IV 12/20/16 15:30 12/20/16 18:39 DC 12/20/16 15:45 4 MG Sodium Chloride 1,000 ml @ 200 mls/hr Q5H STAT IV 12/20/16 15:18 12/20/16 18:39 DC 12/20/16 15:40 200 MLS/HR Ondansetron HCl (Zofran Inj) 4 mg NOW STAT IV 12/20/16 15:18 12/20/16 15:20 DC 12/20/16 15:45 4 MG Hydromorphone HCl (Dilaudid Sales Director) 25 mg PRN PRN IV 12/20/16 15:45 01/03/17 15:44 12/21/16 07:16 25 MG ED Course 1512: The patient was evaluated in room B12B. A complete history and physical exam was performed. 1518: Ordered Zofran Inj 4 mg IV, NSS 1000 ml @ 200 mls/hr IV. 1530: Ordered Morphine Sulfate Inj 4 mg IV PRN. 1538: I discussed the patient with Isabella Lovell PA-C with Dr. Lopez of [facility] - they will evaluate the patient for further treatment for pain control. 1630: Upon reexamination the patient is resting. I discussed results and treatment plan with the patient. she verbalizes agreement and understanding. The patient will be evaluated for further management. Medical Decision Differential diagnosis includes but is not limited to hematoma, fracture, infection, postsurgical pain, UTI, anemia, electrolyte imbalance. There is a mild leukocytosis at 14,000, this could be consistent with pain or infection. A mild anemia is present, likely from her surgery. There is an elevation to her sugar at over 300, no kidney failure. Urinalysis is suggestive of infection, urine culture is pending. Lumbar spine series does not show any evidence for loosening of her hardware, no fracture. The patient received IV morphine, IV Zofran and IV saline. She was given IV ceftriaxone as antibiotic coverage. She received IV insulin to help with her higher blood sugars. I spoke to the surgical spine service, the patient is being brought into the hospital for symptom control and treatment of her presumed UTI. She is in no condition to be discharged. Patient is aware of her findings, the on-call hospitalist has been consulted. Case management is involved. Medication Reconcilliation Current Medication List: was personally reviewed by me Blood Pressure Screening Patient's blood pressure: Elevated blood pressure Blood pressure disposition: Elevated BP felt to be situational Consults Time Called: 1529 Consulting Physician: Isabella Lovell PA-C with Dr. Lopez of [facility] Returned Call: 3 I discussed the patient with Isabella Lovell PA-C with Dr. Lopez of [facility] - they will evaluate the patient for further treatment for pain control. Impression Primary Impression: Lower back pain Additional Impressions: Status post lumbar surgery Failure of outpatient treatment UTI (urinary tract infection) Scribe Attestation The scribe's documentation has been prepared under my direction and personally reviewed by me in its entirety. I confirm that the note above accurately reflects all work, treatment, procedures, and medical decision making performed by me. Departure Information Dispostion Being Evaluated By Hospitalist Referrals No Doctor, Assigned (PCP) Patient Instructions My [facility] Problem Qualifiers Primary Impression: Lower back pain Chronicity: acute Back pain laterality: bilateral Sciatica presence: unspecified whether sciatica present Qualified Codes: M54.5 - Low back pain Additional Impressions: UTI (urinary tract infection) Urinary tract infection type: site unspecified Hematuria presence: without hematuria Qualified Codes: N39.0 - Urinary tract infection, site not specified
[2016-12-20] MEDS ORDERED: MoRPHine SULFATE 4 MG/ML 1 ML CARP\\VIAL IV PRN (15:30)
[2016-12-20] MEDS ORDERED: LORAZEPAM INJ 1 MG in SYRINGE 0 ML IV PRN (15:45)
[2016-12-20] MEDS ORDERED: NALOXONE HCL 0.4 MG/1 ML VIAL/CARP IV PRN (15:45)
[2016-12-20] MEDS: SODIUM CHLORIDE 0.9% 1000ML 1,000 ML IV SCH (15:45)
[2016-12-20 15:48] LABS: BASO % 0.1 %; BASO ABS # 0.02 K/uL (0-0.2); COMPLETE YES; EOS % 0.3 %; HEMATOCRIT 27.5 % (37-47); IG% 0.6 %; LYMPH % 5.8 %; LYMPH ABS # 0.83 K/uL (1.2-3.4); MEAN CELL VOLUME 84.1 fL (80-100); MEAN CORPUSCULAR HEMOGLOBIN 28.4 pg (25-34); MEAN CORPUSCULAR HGB CONC 33.8 g/dl (32-36); MEAN PLATELET VOLUME 7.8 fL (7.4-10.4); MONO % 5.9 %; NEUT % 87.3 %; PLATELET COUNT 418 K/uL (130-400); RED BLOOD COUNT 3.27 M/uL (4.2-5.4); WHITE BLOOD COUNT 14.39 K/uL (4.8-10.8)
[2016-12-20] MEDS ORDERED: ASPEC81 PO (15:48)
[2016-12-20] MEDS ORDERED: GLIP10TA9 PO (15:48)
[2016-12-20] MEDS ORDERED: GLIP5TAB3 PO (15:48)
[2016-12-20 15:55] LABS: URINE APPEARANCE CLOUDY (CLEAR); URINE BILIRUBIN NEG (NEG); URINE COLOR YELLOW; URINE EPITHELIAL CELL AUTO >30 /lpf (0-5); URINE NITRITE NEG (NEG); URINE SPECIFIC GRAVITY 1.028 (1.000-1.030); UROBILINOGEN NEG (NEG)
[2016-12-20 15:57] LABS: MANUAL MICROSCOPIC REQUIRED? NO; REVIEW REQ? NO
[2016-12-20 16:11] LABS: BUN/CREATININE RATIO 22.8 (10-20); CALCIUM 9.7 mg/dl (8.5-10.1); CREATININE 0.84 mg/dl (0.60-1.20); POTASSIUM 4.6 mmol/L (3.5-5.1)
[2016-12-20] MEDS ORDERED: IV FLUIDS COMPLETED PRN (16:15)
[2016-12-20 16:22] LABS: BETA-HYDROXYBUTYRATE 1.63 mg/dL (0.2-2.81)
[2016-12-20] MEDS ORDERED: CEFTRIAXONE SOD INJ 1 GM ADDVIAL IV STA (16:24)
[2016-12-20] MEDS ORDERED: NovoLIN-R INSULIN PER UNIT CHARGE IV STA (16:26)
[2016-12-20 17:45] VITALS: BMI 30.5
[2016-12-20 18:01] VITALS: BP 137/68; PULSE 86; TEMP 37.1; O2SAT 98
[2016-12-20] MEDS ORDERED: PHARMACY GLYCEMIC MGMT CONSULT PRN (19:00)
[2016-12-20] MEDS: DEXAMETHASONE INJ 8 MG in SYRINGE 0 ML IV SCH (19:11)
[2016-12-20] MEDS: LACTATED RINGER'S 1000ML 1,000 ML IV SCH (19:11)
[2016-12-20] MEDS: HYDROmorphone HCL 0.5MG/ML 50 ML CASSETTE IV PRN ×2 (19:37→23:11)
[2016-12-20 19:39] VITALS: BP 126/57; PULSE 78; TEMP 37.5; O2SAT 96
[2016-12-20] MEDS ORDERED: INSULIN ASPART 100 UNITS/ML 3 ML PEN SC SCH (21:00)
[2016-12-20] MEDS ORDERED: METFORMIN HCL 500 MG TAB PO SCH (21:00)
--- NOTE | 2016-12-20 21:37 | DIAGNOSTIC IMAGING REPORT ---
L-SPINE MIN 4 VIEWS ROUTINE CLINICAL HISTORY: 66 years-old Female presenting with pain s/p surgery. TECHNIQUE: Frontal, bilateral oblique, lateral, and coned in lateral views of the lumbar spine were obtained. COMPARISON: Fluoroscopic images from 12/10/2016. FINDINGS: Bilateral transpedicular screw and niko fixation of L3-L5 with associated interbody spacers laminectomy defects. Bone graft material also noted. Normal lumbar lordosis. No radiographic evidence of fracture or subluxation. Evaluation for neural foraminal narrowing is limited at the operative levels. Nonobstructive bowel gas pattern. Atherosclerosis. IMPRESSION: Expected postsurgical changes of L3-L5 posterior fusion with laminectomies. Electronically signed by: Darryl Donovan M.D. 12/20/2016 9:35 PM Dictated Date/Time: 12/20/2016 9:33 PM
[2016-12-20 21:43] VITALS: BP 152/63; PULSE 73; TEMP 37.6; O2SAT 93
[2016-12-20] MEDS: AMLODIPINE BESYLATE 5 MG TAB PO SCH (21:59)
[2016-12-20] MEDS: RANITIDINE HCL 150 MG TAB PO SCH (21:59)
[2016-12-20] MEDS: ATORVASTATIN 40 MG TAB PO SCH (22:00)
[2016-12-20] MEDS: LISINOPRIL 20 MG TAB PO SCH (22:00)
[2016-12-20] MEDS: DOCUSATE SODIUM/SENNA 50/8.6MG TAB PO SCH (22:01)
[2016-12-20] MEDS: INSULIN GLARGINE SOLOSTAR 100 UNITS/ML 3 ML PEN SC SCH (22:07)
[2016-12-20 22:39] VITALS: BP 118/69; PULSE 77; TEMP 37.3; O2SAT 94
[2016-12-20 22:47] VITALS: BP 127/69; PULSE 77; TEMP 37.2; O2SAT 96
[2016-12-20 23:50] VITALS: BP 121/70; PULSE 69; TEMP 36.7; O2SAT 97
[2016-12-20] MEDS: INSULIN ASPART 100 UNITS/ML 3 ML PEN SC SCH (23:51)
[2016-12-21] VITALS (7 sets, daily range): BP systolic 119–156; BP diastolic 67–80; PULSE 57–66; TEMP 36.5–37.1; O2SAT 96–99; BMI 30.5
[2016-12-21] MEDS: INSULIN ASPART 100 UNITS/ML 3 ML PEN SC SCH ×4 (04:00→20:50)
[2016-12-21] MEDS: DEXAMETHASONE INJ 8 MG in SYRINGE 0 ML IV SCH ×2 (04:27→11:33)
[2016-12-21] MEDS ORDERED: INSULIN REGULAR 8 UNITS in SYRINGE 7.92 ML IV SCH (04:30)
[2016-12-21] MEDS ORDERED: INSULIN ASPART 100 UNITS/ML 3 ML PEN SC STA (04:35)
[2016-12-21] MEDS: LEVOTHYROXINE 75 MCG TAB PO SCH (06:08)
[2016-12-21] MEDS: HYDROmorphone HCL 0.5MG/ML 50 ML CASSETTE IV PRN ×3 (07:16→22:56)
[2016-12-21] MEDS ORDERED: INSULIN GLARGINE SOLOSTAR 100 UNITS/ML 3 ML PEN SC SCH (07:30)
--- NOTE | 2016-12-21 08:30 | Medical Consult ---
Consultation Date of Consultation: Dec 21, 2016. Attending Physician: Jeffry Lopez D.O. Reason for Consultation: Medical management History of Present Illness Patient is a 66 year old female, with PMHx of CAD, HTN, dyslipidemia, T2DM, hypothyroidism, and GERD, who presents to the Emergency Room with complaints of persistent low back pain that started 5 days ago. Patient underwent multilevel lumbar decompression fusion secondary to lumbar spinal stenosis on 12/[address] Lopez. Patient was discharged from [facility] on 12/12. She was doing very well until 12/15 when she experienced a fall in her bathroom. Her and daughter had to lift her up and carry her to the bed. She described extreme lower back pain with radicular bilateral lower extremity shooting pains. She also admits to RLE weakness. She laid in bed until Saturday when PT came to see her. She could not get out of bed because of severe pain. She denies bowel or bladder incontinence. She has been eating and drinking OK. She has not had a BM since . Patient denies any fever, chills, sweats, lightheadedness, dizziness, vision changes, CP, palpitations, edema, SOB, wheezing, cough, abdominal pain, nausea, vomiting, diarrhea, urinary symptoms, melena, numbness/tingling, weakness, muscle/joint pain, anxiety/depression, active bleeding, or new skin discoloration/changes. Past Medical/Surgical History Medical Problems: CAD HTN dyslipidemia T2DM hypothyroidism GERD Social History Problems: s/p lumbar surgery Tubal ligation Hysterectomy Family History FH: heart disease Social History Smoking Status: Never Smoker Marital Status: Occupation Status: retired Allergies Coded Allergies: No Known Allergies (Verified , 11/20/16) Home Medications Reported Home Medications Medications Dose Route/Sig Max Daily Dose Days Date Category Glucotrol (Glipizide) 10 Mg Tab 10 Mg PO BID 12/20/16 Reported Glucotrol (Glipizide) 5 Mg Tab 1 Tab PO DAILY 30 12/20/16 Reported Aspirin EC Low Dose (Aspirin) 81 Mg Ectab 81 Mg PO DAILY 12/20/16 Reported Oxycodone HCl 5 Mg Tab 5-10 Mg PO Q4H PRN 30 12/12/16 Rx Ultracet (Tramadol/Acetaminophen) 37.5 Mg/325 Mg Tab 1 Tab PO DAILY PRN 30 11/20/16 Reported Zantac (Ranitidine HCl) 150 Mg Tab 150 Mg PO BID 11/20/16 Reported Glucophage (Metformin Hcl) 1,000 Mg Tab 1,000 Mg PO BID 11/20/16 Reported Levothyroxine Sodium 75 Mcg Tab 1 Tab PO QAM 90 11/20/16 Reported Lantus (Insulin Glargine) 100 Unit/Ml Inj 24 Units SC QPM 11/20/16 Reported Norvasc (Amlodipine Besylate) 5 Mg Tab 5 Mg PO HS 11/20/16 Reported Lipitor (Atorvastatin) 40 Mg Tab 40 Mg PO HS 11/20/16 Reported Atenolol 50 Mg Tab 50 Mg PO HS 11/20/16 Reported Zestril (Lisinopril) 20 Mg Tab 20 Mg PO HS 11/03/07 Reported Current Inpatient Medications Current Inpatient Medications Medications (Trade) Dose Ordered Sig/Ovidio Route Start Time Stop Time Status Last Admin Dose Admin Lactated Ringer's 1,000 ml @ 15 mls/hr Q24H IV 12/20/16 19:00 01/19/17 18:59 12/20/16 19:11 15 MLS/HR Dexamethasone Sodium Phosphate 8 mg/Syringe 2 ml @ 1 mls/min Q8H IV 12/20/16 19:00 12/21/16 11:01 12/21/16 04:27 1 MLS/MIN Lorazepam 1 mg/ Syringe 0.5 ml @ 1 mls/min Q6H PRN IV 12/20/16 15:45 01/19/17 15:44 Naloxone HCl (Narcan Inj) 0.1 mg Q5M PRN IV 12/20/16 15:45 01/19/17 15:44 Hydromorphone HCl (Dilaudid Otolaryngology Surgeon) 25 mg PRN PRN IV 12/20/16 15:45 01/03/17 15:44 12/21/16 07:16 25 MG Senna/Docusate Sodium (Senokot S Tab) 1 tab BID PO 12/20/16 21:00 01/19/17 20:59 12/20/16 22:01 1 TAB Sodium Chloride 1,000 ml @ 15 mls/hr Q24H IV 12/20/16 15:45 01/19/17 15:44 Amlodipine Besylate (Norvasc Tab) 5 mg HS PO 12/20/16 21:00 01/19/17 20:59 12/20/16 21:59 5 MG Atenolol (Tenormin Tab) 50 mg HS PO 12/20/16 21:00 01/19/17 20:59 12/20/16 22:01 50 MG Atorvastatin Calcium (Lipitor Tab) 40 mg HS PO 12/20/16 21:00 01/19/17 20:59 12/20/16 22:00 40 MG Glipizide (Glucotrol Tab) 5 mg HS PO 12/20/16 21:00 01/19/17 20:59 Future Hold Insulin Glargine (Lantus Solostar Pen) 24 units QPM SC 12/20/16 21:00 01/19/17 20:59 12/20/16 22:07 24 UNITS Levothyroxine Sodium (Synthroid Tab) 75 mcg DAILYBB PO 12/21/16 06:00 01/20/17 06:59 12/21/16 06:08 75 MCG Lisinopril (Zestril Tab) 20 mg HS PO 12/20/16 21:00 01/19/17 20:59 12/20/16 22:00 20 MG Metformin HCl (Glucophage Tab) 1,000 mg BID PO 12/20/16 21:00 01/19/17 20:59 Future Hold Ranitidine HCl (zANTac TAB) 150 mg BID PO 12/20/16 21:00 01/19/17 20:59 12/20/16 21:59 150 MG Miscellaneous (Iv Fluids Completed) 1 ea PRN PRN N/A 12/20/16 16:15 12/20/17 16:14 Lorazepam (Ativan Tab) 1 mg Q6H PRN PO 12/20/16 17:45 01/19/17 17:44 Miscellaneous Information (Consult Glycemic Management Pharmacy) 1 ea UD PRN N/A 12/20/16 19:00 01/19/17 18:59 Insulin Aspart (novoLOG ASPART) SLIDING SCALE ACHS SC 12/20/16 21:00 01/19/17 20:59 12/20/16 22:06 9 UNITS Physical Exam Date Time Temp Pulse Resp B/P (MAP) Pulse Ox O2 Delivery O2 Flow Rate FiO2 12/21/16 07:22 36.7 60 18 146/80 (102) 98 Room Air 12/21/16 03:30 36.5 66 16 156/77 (103) 98 Room Air 12/21/16 00:00 Room Air 12/20/16 23:50 36.7 69 18 121/70 (87) 97 Room Air 12/20/16 22:47 37.2 77 16 127/69 (88) 96 Room Air 12/20/16 22:39 37.3 77 18 118/69 (85) 94 Room Air 12/20/16 21:43 37.6 73 18 152/63 (92) 93 Room Air 12/20/16 19:39 37.5 78 18 126/57 (80) 96 Room Air 12/20/16 18:01 37.1 86 18 137/68 (91) 98 Room Air 12/20/16 17:45 Room Air 12/20/16 17:12 82 18 125/67 98 Room Air 12/20/16 14:53 37.1 76 18 166/68 94 Room Air General Appearance: no apparent distress, + obese Head: normocephalic, atraumatic Eyes: PERRL ENT: hearing grossly normal Neck: supple Respiratory/Chest: lungs clear, no respiratory distress, no accessory muscle use Cardiovascular: regular rate, rhythm Abdomen/GI: normal bowel sounds, non tender, soft Extremities/Musculoskelatal: no calf tenderness, no pedal edema, + pertinent finding (TEDs on) Neurologic/Psych: alert, normal mood/affect, oriented x 3, + sensory deficit ( sensory intact to bilateral LEs, but decreased to RLE ) Skin: normal color, warm/dry, no rash Laboratory Results Last 24 Hours Test 12/20/16 15:06 12/20/16 21:51 12/20/16 23:44 12/21/16 04:08 White Blood Count 14.39 K/uL Red Blood Count 3.27 M/uL Hemoglobin 9.3 g/dL Hematocrit 27.5 % Mean Corpuscular Volume 84.1 fL Mean Corpuscular Hemoglobin 28.4 pg Mean Corpuscular Hemoglobin Concent 33.8 g/dl Platelet Count 418 K/uL Mean Platelet Volume 7.8 fL Neutrophils (%) (Auto) 87.3 % Lymphocytes (%) (Auto) 5.8 % Monocytes (%) (Auto) 5.9 % Eosinophils (%) (Auto) 0.3 % Basophils (%) (Auto) 0.1 % Neutrophils # (Auto) 12.57 K/uL Lymphocytes # (Auto) 0.83 K/uL Monocytes # (Auto) 0.85 K/uL Eosinophils # (Auto) 0.04 K/uL Basophils # (Auto) 0.02 K/uL RDW Standard Deviation 38.2 fL RDW Coefficient of Variation 12.3 % Immature Granulocyte % (Auto) 0.6 % Immature Granulocyte # (Auto) 0.08 K/uL Urine Color YELLOW Urine Appearance CLOUDY Urine pH 5.0 Urine Specific Surveyor 1.028 Urine Protein TRACE Urine Glucose (UA) 3+ Urine Ketones NEG Urine Occult Blood TRACE Urine Nitrite NEG Urine Bilirubin NEG Urine Urobilinogen NEG Urine Leukocyte Esterase MODERATE Urine WBC (Auto) >30 /hpf Urine RBC (Auto) 0-4 /hpf Urine Hyaline Casts (Auto) 1-5 /lpf Urine Epithelial Cells (Auto) >30 /lpf Urine Bacteria (Auto) 4+ Sodium Level 130 mmol/L Potassium Level 4.6 mmol/L Chloride Level 95 mmol/L Carbon Dioxide Level 28 mmol/L Anion Gap 7.0 mmol/L Blood Urea Nitrogen 19 mg/dl Creatinine 0.84 mg/dl Est Creatinine Clear Calc Drug Dose 70.2 ml/min Estimated GFR () 83.9 Estimated GFR (Non- 72.4 BUN/Creatinine Ratio 22.8 Random Glucose 320 mg/dl Calcium Level 9.7 mg/dl Beta-Hydroxybutyric Acid 1.63 mg/dL Bedside Glucose 310 mg/dl 372 mg/dl 391 mg/dl Test 12/21/16 05:44 Bedside Glucose 363 mg/dl Assessment & Plan 66 year old female, with PMHx of CAD, HTN, dyslipidemia, T2DM, hypothyroidism, and GERD, who presents to the Emergency Room with complaints of persistent low back pain that started 5 days ago. Patient underwent multilevel lumbar decompression fusion secondary to lumbar spinal stenosis on 12/[address] Lopez. Intractable low back pain s/p multilevel lumbar decompression fusion secondary to lumbar spinal stenosis on 12/[address] Lopez: - Admitted to orthopedics services - Management as per ortho Leukocytosis: - UCx growing gram negative bacilli- IV Rocephin pending final cultures -- UTI w/ Klebsiella pneumoniae in 11/20/16- pansensitive Constipation: Senokot BID and MiraLAX daily CAD, HTN, dyslipidemia: Continue Norvasc 5 mg daily, Atenolol 50 mg HS, Lisinopril 20 mg HS, Lipitor 40 mg HS, T2DM- HgbA1C 8.1% on 09/06: - Hyperglycemia, likely secondary to IV Decadron- pharmacy consulted for diabetic management - Glipizide and Metformin held - Continue Lantus 24 U daily - BSG ACHS and sliding insulin scale Hypothyroidism: Synthroid 75 mcg daily GERD: Continue Zantac 150 mg BID DVT prophylaxis: TEDs/SCDs; chemical anticoagulation as per ortho Code Status: LEVEL I, FULL Dispo: As per primary team Thank you for this consultation. We will continue to follow. i personally examined pt and verified all peterson points fran Morales PAC feeling good. no back pain no leg pain no saddle anesthesia no bowel or bladder incontinence vitals noted nad breathing unlabored no pallor or icterus back pain - post op - trial of steroids and then PT. appearing improving DM - insulin gtt otherwise as above
[2016-12-21] MEDS ORDERED: INSULIN IV INFUSION PROTOCOL SCH (09:00)
[2016-12-21] MEDS: DOCUSATE SODIUM/SENNA 50/8.6MG TAB PO SCH ×2 (09:24→20:44)
[2016-12-21] MEDS: RANITIDINE HCL 150 MG TAB PO SCH ×2 (09:24→20:43)
--- NOTE | 2016-12-21 09:48 | Pharmacy Progress Note ---
Glycemic Control Intl Consult Date of Service Dec 21, 2016. Scope Glycemic Pharmacist consulted by ANTHONY Auguste on 12/20/16 for glycemic control and to write orders per [facility] inpatient glycemic control protocol Objective Weight (Kilograms): 83.200 Accuchecks BSG (last 24hrs): Test 12/20/16 15:06 12/20/16 21:51 12/20/16 23:44 12/21/16 04:08 Random Glucose 320 mg/dl (70-99) Bedside Glucose 310 mg/dl (70-90) 372 mg/dl (70-90) 391 mg/dl (70-90) Test 12/21/16 05:44 12/21/16 08:11 Bedside Glucose 363 mg/dl (70-90) 240 mg/dl (70-90) Laboratory Data (last 24hrs) Test 12/20/16 15:06 Anion Gap 7.0 mmol/L BUN/Creatinine Ratio 22.8 Blood Urea Nitrogen 19 mg/dl Creatinine 0.84 mg/dl Potassium Level 4.6 mmol/L Sodium Level 130 mmol/L White Blood Count 14.39 K/uL Red Blood Count 3.27 M/uL Hemoglobin 9.3 g/dL Hematocrit 27.5 % Mean Corpuscular Volume 84.1 fL Mean Corpuscular Hemoglobin 28.4 pg Mean Corpuscular Hemoglobin Concent 33.8 g/dl Platelet Count 418 K/uL Mean Platelet Volume 7.8 fL Neutrophils (%) (Auto) 87.3 % Lymphocytes (%) (Auto) 5.8 % Monocytes (%) (Auto) 5.9 % Eosinophils (%) (Auto) 0.3 % Basophils (%) (Auto) 0.1 % Neutrophils # (Auto) 12.57 K/uL Lymphocytes # (Auto) 0.83 K/uL Monocytes # (Auto) 0.85 K/uL Eosinophils # (Auto) 0.04 K/uL Basophils # (Auto) 0.02 K/uL HbA1c Item Value Date Time Hemoglobin A1c 8.1 % H 09/06/16 0715 Estimated Average Glucose 186 mg/dl 09/06/16 0715 Recent Pertinent Medications Outpatient Anti-diabetic Regimen: * Lantus 24 units QPM * Glipizide + Metformin The patient is currently receiving: * Basal insulin: Lantus 24 units every 24 hours * Correctional Insulin: Novolog Correction per scale ACHS Goal Range: Low 110 mg/dL - High 140 mg/dL Correction Factor: 20 mg/dL/unit * Prandial insulin: Per carb ratio of 1 unit per 6 grams CHO consumed Risk Factors for Insulin Resistance: * Steroids * Diet Assessment & Plan ASSESSMENT: * 66 yo F admitted with lumbar pain, s/p multilevel lumbar decompression fusion secondary to spinal stenosis on 12/10 * She is known to our glycemic service from that admission, during which she received IV steroids and required >100 units of insulin with BSGs maintained in the 200-300 range * Overnight, pharmacy consulted and recommended insulin drip for management which was declined by orthopedic team at that point * This AM, BSGs nearing 400, and IV boluses have been given in addition to large SQ boluses * BSG finally responded and came down to 240; however, patient is to receive 2 more doses of IV dexamethasone * My plan is to initiate insulin infusion, which was approved by overseeing hospitalist team * It would be in her best interest to have a minimum of 12 hours of IV insulin therapy in addition to her her basal regimen to keep BSGs <200 * ADA & AACE recommend a goal blood sugar range 140-180 mg/dl for the majority of critically ill & non-critically ill patients. However, more stringent targets may be selected in individual cases. PLAN FOR INPATIENT GLYCEMIC CONTROL: * Start IV insulin infusion per Severe stress protocol * Goal Range 100 - 200 mg/dl * Continue through the evening * Hold outpatient oral diabetes medications * Basal insulin with LANTUS 24 units SQ HS * Extra Lantus 24 units X 1 given this AM Note for overnight: * If BSGs trend down and drip turns itself off after Lantus given tonight, OK to D/C insulin drip * Check BSGs @00,04 with CF 20, CR 7 * Goal range 110-140 mg/dL * Please note that the plan above was derived based on current level of insulin resistance and hospital stress. These recommendations are appropriate for inpatient admission only. Plan of care upon discharge will need to be reassessed to avoid potential outpatient hypo/hyperglycemia. Thank you.
[2016-12-21] MEDS ORDERED: INSULIN HUMAN REGULAR IV BOLUS 3 UNIT in SYRINGE 0 ML IV SCH (10:30)
[2016-12-21] MEDS: INSULIN REGULAR 250 UNITS in SODIUM CHLORIDE 0.9% 250ML 250 ML IV SCH ×10 (11:28→22:34)
[2016-12-21] MEDS ORDERED: POLYETHYLENE (MIRALAX) 17 GM PACK PO ONE (13:15)
[2016-12-21] MEDS: SODIUM CHLORIDE 0.9% 1000ML 1,000 ML IV SCH (15:45)
--- NOTE | 2016-12-21 15:59 | History and Physical ---
History & Physical Date Dec 21, 2016. Chief Complaint Back pain and bilateral leg pain History of Present Illness The patient is a 66 year old female with complaints of onset of worsening back and bilateral leg pain. She is status post lumbar decompression fusion approximately one week ago. She denies any trauma fall or event. Symptoms started to bother over the past few days. She denies any nausea vomiting or headaches. She is comfortable lying in bed. She is not have a bowel movement several days but denies any loss of bowel or bladder control. Past Medical/Surgical History Medical Problems: (1) Intractable back pain (2) Lumbar stenosis with neurogenic claudication Additional History Hepatic Disease: No Endocrine Disorder: No Kidney Disease: No Hypertension: Yes Heart Disease: No Bleeding Tendencies: No Infectious Diseases: No Allergies Coded Allergies: No Known Allergies (Verified , 11/20/16) Home Medications Scheduled Amlodipine (Norvasc), 5 MG PO HS Aspirin (Aspirin EC Low Dose), 81 MG PO DAILY Atenolol (Atenolol), 50 MG PO HS Atorvastatin (Lipitor), 40 MG PO HS Glipizide (Glucotrol), 1 TAB PO DAILY Glipizide (Glucotrol), 10 MG PO BID Insulin Glargine (Lantus), 24 UNITS SC QPM Levothyroxine Sodium (Levothyroxine Sodium), 1 TAB PO QAM Lisinopril (Zestril), 20 MG PO HS Metformin Hcl (Glucophage), 1,000 MG PO BID Ranitidine (Zantac), 150 MG PO BID Scheduled PRN Oxycodone HCl (Oxycodone HCl), 5-10 MG PO Q4H PRN for Moderate - severe pain Tramadol/Acetaminophen (Ultracet), 1 TAB PO DAILY PRN for Pain Physical Examination Skin: warm/dry, no rash Eyes: normal inspection, EOMI, sclerae normal ENT: normal ENT inspection, pharynx normal Head: normocephalic, atraumatic Neck: supple, no adenopathy, trachea midline Respiratory/Chest: lungs clear, normal breath sounds, no respiratory distress Cardiovascular: regular rate, rhythm, no edema, no murmur Abdomen / GI: normal bowel sounds, non tender Back: normal inspection Extremities: normal inspection, normal range of motion Neurologic/Psych: no motor/sensory deficits, alert, normal reflexes, oriented x 3 Addiitonal Comments: Detailed lower extremity exam reveals sensory symmetric and intact. Negative logroll. +5 over 5 bilateral lateral plantar flexion dorsiflexion quadriceps. Decisions is clean dry and intact. There is some modest tenderness only. No drainage or erythema. Diagnosis Postoperative back pain Plan of Treatment At this time we will maintain bed rest with bathroom privileges today. I would like to initiate bed to chair beginning this weekend and hopefully course of physical therapy. If she fails to improve the next 24-48 hours we may need to consider further imaging. Again x-rays obtained demonstrate no evidence of migration of hardware.
[2016-12-21] MEDS: CEFTRIAXONE SOD INJ 1 GM in DEXTROSE 5% ADD-VANTAGE 50ML 50 ML IV SCH (16:02)
[2016-12-21] MEDS: LACTATED RINGER'S 1000ML 1,000 ML IV SCH (19:01)
[2016-12-21] MEDS: AMLODIPINE BESYLATE 5 MG TAB PO SCH (20:43)
[2016-12-21] MEDS: LISINOPRIL 20 MG TAB PO SCH (20:43)
[2016-12-21] MEDS: ATORVASTATIN 40 MG TAB PO SCH (20:44)
[2016-12-21] MEDS: INSULIN GLARGINE SOLOSTAR 100 UNITS/ML 3 ML PEN SC SCH (20:51)
[2016-12-22] VITALS (8 sets, daily range): BP systolic 112–159; BP diastolic 67–74; PULSE 57–64; TEMP 36.4–36.6; O2SAT 95–100
[2016-12-22] MEDS: INSULIN REGULAR 250 UNITS in SODIUM CHLORIDE 0.9% 250ML 250 ML IV SCH (00:35)
[2016-12-22] MEDS: LORAZEPAM 1 MG TAB PO PRN ×3 (01:07→16:12)
[2016-12-22] MEDS: LEVOTHYROXINE 75 MCG TAB PO SCH (05:44)
[2016-12-22 06:20] LABS: HEMATOCRIT 25.1 % (37-47); MEAN CELL VOLUME 83.9 fL (80-100); MEAN CORPUSCULAR HEMOGLOBIN 28.8 pg (25-34); MEAN CORPUSCULAR HGB CONC 34.3 g/dl (32-36); MEAN PLATELET VOLUME 7.8 fL (7.4-10.4); PLATELET COUNT 424 K/uL (130-400); RED BLOOD COUNT 2.99 M/uL (4.2-5.4); WHITE BLOOD COUNT 14.92 K/uL (4.8-10.8)
[2016-12-22 06:47] LABS: BUN/CREATININE RATIO 37.1 (10-20); CALCIUM 9.7 mg/dl (8.5-10.1); CREATININE 0.77 mg/dl (0.60-1.20); POTASSIUM 4.5 mmol/L (3.5-5.1)
[2016-12-22] MEDS: HYDROmorphone HCL 0.5MG/ML 50 ML CASSETTE IV PRN ×4 (07:00→23:04)
[2016-12-22] MEDS ORDERED: INSULIN GLARGINE SOLOSTAR 100 UNITS/ML 3 ML PEN SC ONE (07:30)
[2016-12-22] MEDS: RANITIDINE HCL 150 MG TAB PO SCH ×2 (08:12→21:35)
[2016-12-22] MEDS: DOCUSATE SODIUM/SENNA 50/8.6MG TAB PO SCH ×2 (08:13→21:35)
[2016-12-22] MEDS: POLYETHYLENE (MIRALAX) 17 GM PACK PO SCH (08:13)
[2016-12-22] MEDS: INSULIN ASPART 100 UNITS/ML 3 ML PEN SC SCH ×5 (09:10→23:47)
[2016-12-22] MEDS ORDERED: KETOROLAC TROMETHAMINE 15 MG/ML VIAL IV. STA (10:18)
--- NOTE | 2016-12-22 10:50 | Progress Note ---
Progress Note Date of Service Dec 22, 2016. Progress Note Patient continues complaining of some right leg pain. Back pain is controlled. She is able to sit up without difficulty. On exam she is excellent strength testing plantar flexion dorsiflexion quadriceps. Is negative logroll. Is markedly tender right greater trochanteric bursa and IT band. Assessment status post lumbar depression fusion replant this time I suspect she has significant bursitis contributory leg symptoms. Does not appear to be radicular in nature. We will attempt a course of physical therapy today. If she fails to improve we may need to proceed with further imaging of the lumbar spine.
[2016-12-22] MEDS ORDERED: INSULIN REGULAR 8 UNITS in SYRINGE 7.92 ML IV ONE (13:15)
--- NOTE | 2016-12-22 13:28 | Pharmacy Progress Note ---
Glycemic Control Progress Note Date of Service Dec 22, 2016. Scope Glycemic Pharmacist consulted for glycemic control to write orders per [facility] inpatient glycemic control protocol. Objective Accuchecks BSG (last 24hrs): Test 12/21/16 13:29 12/21/16 14:31 12/21/16 15:30 12/21/16 16:29 Bedside Glucose 256 mg/dl (70-90) 261 mg/dl (70-90) 217 mg/dl (70-90) 178 mg/dl (70-90) Test 12/21/16 17:32 12/21/16 18:47 12/21/16 20:33 12/21/16 22:27 Bedside Glucose 159 mg/dl (70-90) 144 mg/dl (70-90) 131 mg/dl (70-90) 144 mg/dl (70-90) Test 12/22/16 00:29 12/22/16 05:47 12/22/16 07:58 12/22/16 11:57 Bedside Glucose 139 mg/dl (70-90) 255 mg/dl (70-90) 307 mg/dl (70-90) Random Glucose 270 mg/dl (70-99) Recent Pertinent Medications Outpatient Anti-diabetic Regimen: * Lantus 24 units QPM * Glipizide + Metformin The patient is currently receiving: * Basal insulin: Lantus 24 units every 12 hours * Correctional Insulin: Novolog Correction per scale ACHS Goal Range: Low 110 mg/dL - High 140 mg/dL Correction Factor: 15 mg/dL/unit * Prandial insulin: Per carb ratio of 1 unit per 5 grams CHO consumed Risk Factors for Insulin Resistance: * Steroids * Diet Outpatient Anti-Diabetic Meds Oral Agents Basal Insulin Assessment & Plan ASSESSMENT: 12/21 * 66 yo F admitted with lumbar pain, s/p multilevel lumbar decompression fusion secondary to spinal stenosis on 12/10 * She is known to our glycemic service from that admission, during which she received IV steroids and required >100 units of insulin with BSGs maintained in the 200-300 range * Overnight, pharmacy consulted and recommended insulin drip for management which was declined by orthopedic team at that point * This AM, BSGs nearing 400, and IV boluses have been given in addition to large SQ boluses * BSG finally responded and came down to 240; however, patient is to receive 2 more doses of IV dexamethasone * My plan is to initiate insulin infusion, which was approved by overseeing hospitalist team * It would be in her best interest to have a minimum of 12 hours of IV insulin therapy in addition to her her basal regimen to keep BSGs <200 * ADA & AACE recommend a goal blood sugar range 140-180 mg/dl for the majority of critically ill & non-critically ill patients. However, more stringent targets may be selected in individual cases. 12/22 * Overnight, insulin drip was turned off as BSGs were within goal range * I had left instruction that the drip could be turned off in the case that the drip turned itself off * This was not the case- the drip was running at 4 units/hr when turned off * Given that patient was requiring 4 units of IV insulin per hour on top of her basal insulin indicated the drip should have remained on until this AM * She received an additional dose of basal insulin which I will continue every 12 hours for today * Her BSGs were back in the 200-300's this morning and afternoon * I will tighten her regimen and give her an IV bolus, if she does not respond, insulin drip to be restarted per protocol * I added additional overnight checks which should help * I expect her steroid induced hyperglycemia to start to dissipate over the next 12 hours, similar in timeline to her last admission when given IV dexamethasone X 3 doses PLAN FOR INPATIENT GLYCEMIC CONTROL: * Hold outpatient oral diabetes medications * Basal insulin with LANTUS 24 units SQ BID * Give HS dose with dinner to help get BSGs down * Bolus insulin with NOVOLOG ACHS + 00,04 * Goal range 110-140 mg/dL * Correction factor 10 * Carb ratio 4 * Please note that the plan above was derived based on current level of insulin resistance and hospital stress. These recommendations are appropriate for inpatient admission only. Plan of care upon discharge will need to be reassessed to avoid potential outpatient hypo/hyperglycemia. Thank you.
[2016-12-22] MEDS ORDERED: NURSING VERBAL MED ORDER ONE (16:00)
[2016-12-22] MEDS: SODIUM CHLORIDE 0.9% 1000ML 1,000 ML IV SCH (16:18)
[2016-12-22] MEDS: CEFTRIAXONE SOD INJ 1 GM in DEXTROSE 5% ADD-VANTAGE 50ML 50 ML IV SCH (16:18)
--- NOTE | 2016-12-22 18:26 | Progress Note ---
Subjective Date of Service: Dec 22, 2016. Subjective pt visited twice sleeping comfortably both times, discussed with nursing main new issue is restless legs still quite bothersome, no other HPI or ROS obtainable Problem List Medical Problems: (1) Failure of outpatient treatment Status: Acute (2) Lower back pain Status: Acute (3) UTI (urinary tract infection) Status: Acute Social History Problems: (1) Status post lumbar surgery Status: Acute Objective Vital Signs Date Time Temp Pulse Resp B/P (MAP) Pulse Ox O2 Delivery O2 Flow Rate FiO2 12/22/16 15:33 36.4 58 17 122/69 (86) 100 Room Air 12/22/16 15:15 Room Air 12/22/16 12:46 58 98 12/22/16 12:44 57 18 159/73 (101) 99 Room Air 12/22/16 07:45 36.6 59 19 140/73 (95) 98 Room Air 12/22/16 07:30 Room Air 12/22/16 03:56 36.5 58 16 121/74 (90) 95 Room Air 12/21/16 23:21 36.6 57 17 131/77 (95) 97 Room Air 12/21/16 23:15 Room Air 12/21/16 20:42 64 134/79 (97) 12/21/16 18:49 37.1 62 18 139/67 (91) 99 Room Air Physical Exam General Appearance: no apparent distress Respiratory/Chest: no respiratory distress, no accessory muscle use 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 (no focal deficits or asymetry at rest noted) Skin: normal color, warm/dry Laboratory Results Last 24 Hours Test 12/21/16 18:47 12/21/16 20:33 12/21/16 22:27 12/22/16 00:29 Bedside Glucose 144 mg/dl 131 mg/dl 144 mg/dl 139 mg/dl Test 12/22/16 05:47 12/22/16 07:58 12/22/16 11:57 12/22/16 17:39 White Blood Count 14.92 K/uL Red Blood Count 2.99 M/uL Hemoglobin 8.6 g/dL Hematocrit 25.1 % Mean Corpuscular Volume 83.9 fL Mean Corpuscular Hemoglobin 28.8 pg Mean Corpuscular Hemoglobin Concent 34.3 g/dl RDW Standard Deviation 38.6 fL RDW Coefficient of Variation 12.5 % Platelet Count 424 K/uL Mean Platelet Volume 7.8 fL Sodium Level 131 mmol/L Potassium Level 4.5 mmol/L Chloride Level 98 mmol/L Carbon Dioxide Level 25 mmol/L Anion Gap 8.0 mmol/L Blood Urea Nitrogen 29 mg/dl Creatinine 0.77 mg/dl Est Creatinine Clear Calc Drug Dose 76.6 ml/min Estimated GFR () 93.3 Estimated GFR (Non- 80.5 BUN/Creatinine Ratio 37.1 Random Glucose 270 mg/dl Calcium Level 9.7 mg/dl Bedside Glucose 255 mg/dl 307 mg/dl 206 mg/dl Assessment and Plan 66 year old female, with PMHx of CAD, HTN, dyslipidemia, T2DM, hypothyroidism, and GERD, who presents to the Emergency Room with complaints of persistent low back pain that started 5 days ago. Patient underwent multilevel lumbar decompression fusion secondary to lumbar spinal stenosis on 12/[address] Lopez. Intractable low back pain s/p multilevel lumbar decompression fusion secondary to lumbar spinal stenosis on 12/[address] Lopez: - Admitted to orthopedics services - Management as per ortho LeukocytosisUTI - UCx growing gram negative bacilli and gram positive cocci - started on IV Rocephin --> transition to PO keflex since gram negatives are sensitive, greater chance of gram positive coverage with this pending further ID&S -- UTI w/ Klebsiella pneumoniae in 11/20/16- pansensitive restless legs -trial of gabapentin HS Constipation: Senokot BID and MiraLAX daily CAD, HTN, dyslipidemia: Continue Norvasc 5 mg daily, Atenolol 50 mg HS, Lisinopril 20 mg HS, Lipitor 40 mg HS, BP's have overall been reasonable given the situation T2DM- HgbA1C 8.1% on 09/06: - Hyperglycemia, likely secondary to IV Decadron- pharmacy consulted for diabetic management - Glipizide and Metformin held - Continue Lantus 24 U daily - BSG ACHS and sliding insulin scale Hypothyroidism: Synthroid 75 mcg daily GERD: Continue Zantac 150 mg BID DVT prophylaxis: TEDs/SCDs; chemical anticoagulation as per ortho Code Status: LEVEL I, FULL Dispo: As per primary team
[2016-12-22] MEDS: INSULIN GLARGINE SOLOSTAR 100 UNITS/ML 3 ML PEN SC SCH (18:37)
[2016-12-22] MEDS: AMLODIPINE BESYLATE 5 MG TAB PO SCH (21:35)
[2016-12-22] MEDS: GABAPENTIN 300 MG CAP PO SCH (21:35)
[2016-12-22] MEDS: CEPHALEXIN MONOHYDRATE 500 MG CAP PO SCH (21:35)
[2016-12-22] MEDS: LISINOPRIL 20 MG TAB PO SCH (21:35)
[2016-12-22] MEDS: ATORVASTATIN 40 MG TAB PO SCH (21:36)
[2016-12-23 03:51] VITALS: BP 134/69; PULSE 54; TEMP 36.6; O2SAT 99
[2016-12-23] MEDS: INSULIN ASPART 100 UNITS/ML 3 ML PEN SC SCH ×5 (04:00→20:40)
[2016-12-23] MEDS: LEVOTHYROXINE 75 MCG TAB PO SCH (05:49)
[2016-12-23] MEDS: HYDROmorphone HCL 0.5MG/ML 50 ML CASSETTE IV PRN (07:02)
[2016-12-23 07:21] LABS: MEAN CELL VOLUME 85.4 fL (80-100); MEAN CORPUSCULAR HEMOGLOBIN 28.7 pg (25-34); MEAN CORPUSCULAR HGB CONC 33.6 g/dl (32-36); MEAN PLATELET VOLUME 7.8 fL (7.4-10.4); PLATELET COUNT 453 K/uL (130-400); RED BLOOD COUNT 3.28 M/uL (4.2-5.4); WHITE BLOOD COUNT 9.28 K/uL (4.8-10.8)
[2016-12-23 07:29] VITALS: BP 148/84; PULSE 53; TEMP 36.6; O2SAT 95
--- NOTE | 2016-12-23 08:39 | Progress Note ---
Progress Note Date of Service Dec 23, 2016. Progress Note Patient states that her right leg continues to bother her with activity. It is along the right lateral thigh. It is not radicular nature. On exam she simply bed demonstrates good strength testing. Sensory symmetric and intact. Assessment status post lumbar decompression fusion. Plan this time will continue physical therapy anticipate rehabilitation placement next week.
[2016-12-23] MEDS: RANITIDINE HCL 150 MG TAB PO SCH ×2 (09:11→20:26)
[2016-12-23] MEDS: POLYETHYLENE (MIRALAX) 17 GM PACK PO SCH (09:11)
[2016-12-23] MEDS: DOCUSATE SODIUM/SENNA 50/8.6MG TAB PO SCH (09:11)
[2016-12-23] MEDS: CEPHALEXIN MONOHYDRATE 500 MG CAP PO SCH ×4 (09:11→20:26)
[2016-12-23] MEDS ORDERED: ACETAMINOPHEN 500 MG TAB PO PRN (11:30)
--- NOTE | 2016-12-23 13:44 | Pharmacy Progress Note ---
Glycemic Control Progress Note Date of Service Dec 23, 2016. Scope Glycemic Pharmacist consulted for glycemic control to write orders per [facility] inpatient glycemic control protocol. Objective Accuchecks BSG (last 24hrs): Test 12/22/16 17:39 12/22/16 20:42 12/22/16 23:47 12/23/16 03:55 Bedside Glucose 206 mg/dl (70-90) 75 mg/dl (70-90) 89 mg/dl (70-90) 102 mg/dl (70-90) Test 12/23/16 08:12 12/23/16 12:18 Bedside Glucose 101 mg/dl (70-90) 175 mg/dl (70-90) Recent Pertinent Medications Outpatient Anti-diabetic Regimen: * Lantus 24 units QPM * Glipizide + Metformin The patient is currently receiving: * Basal insulin: Lantus 24 units every 12 hours * Correctional Insulin: Novolog Correction per scale ACHS Goal Range: Low 110 mg/dL - High 140 mg/dL Correction Factor: 15 mg/dL/unit * Prandial insulin: Per carb ratio of 1 unit per 5 grams CHO consumed Risk Factors for Insulin Resistance: * Steroids * Diet Outpatient Anti-Diabetic Meds Oral Agents Basal Insulin Assessment & Plan ASSESSMENT: 12/21 * 66 yo F admitted with lumbar pain, s/p multilevel lumbar decompression fusion secondary to spinal stenosis on 12/10 * She is known to our glycemic service from that admission, during which she received IV steroids and required >100 units of insulin with BSGs maintained in the 200-300 range * Overnight, pharmacy consulted and recommended insulin drip for management which was declined by orthopedic team at that point * This AM, BSGs nearing 400, and IV boluses have been given in addition to large SQ boluses * BSG finally responded and came down to 240; however, patient is to receive 2 more doses of IV dexamethasone * My plan is to initiate insulin infusion, which was approved by overseeing hospitalist team * It would be in her best interest to have a minimum of 12 hours of IV insulin therapy in addition to her her basal regimen to keep BSGs <200 * ADA & AACE recommend a goal blood sugar range 140-180 mg/dl for the majority of critically ill & non-critically ill patients. However, more stringent targets may be selected in individual cases. 12/22 * Overnight, insulin drip was turned off as BSGs were within goal range * I had left instruction that the drip could be turned off in the case that the drip turned itself off * This was not the case- the drip was running at 4 units/hr when turned off * Given that patient was requiring 4 units of IV insulin per hour on top of her basal insulin indicated the drip should have remained on until this AM * She received an additional dose of basal insulin which I will continue every 12 hours for today * Her BSGs were back in the 200-300's this morning and afternoon * I will tighten her regimen and give her an IV bolus, if she does not respond, insulin drip to be restarted per protocol * I added additional overnight checks which should help * I expect her steroid induced hyperglycemia to start to dissipate over the next 12 hours, similar in timeline to her last admission when given IV dexamethasone X 3 doses 12/23 * Fasting BSG 101 this AM * Steroid effects have seemed to wear off at this point * Loosen Novolog coverage and give home dose of Lantus only tonight PLAN FOR INPATIENT GLYCEMIC CONTROL: * Hold outpatient oral diabetes medications * Basal insulin with LANTUS 24 units SQ HS * Bolus insulin with NOVOLOG ACHS * Goal range 110-140 mg/dL * Correction factor 25 * Carb ratio 8 * Please note that the plan above was derived based on current level of insulin resistance and hospital stress. These recommendations are appropriate for inpatient admission only. Plan of care upon discharge will need to be reassessed to avoid potential outpatient hypo/hyperglycemia. Thank you.
[2016-12-23 15:26] VITALS: BP 138/66; PULSE 66; TEMP 37.2; O2SAT 99
--- NOTE | 2016-12-23 15:30 | Progress Note ---
Subjective Date of Service: Dec 23, 2016. Subjective Pt evaluation today including: conversation w/ patient, conversation w/ family , physical exam, chart review, lab review, review of inpatient medication list notes that leg pain feels about the same as when she came in - back and then mostly down legs also notes that she feels dizzy today - when OOB - notes that this was happening when she was at home too - relates that it's a lightheadedness like she's going to pass out. 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 - IV site went bad and she would prefer to try PO control for now rather than restarting IVs d/w pt and extensively, answered all questions to the best of my ability and to their satisfaction Problem List Medical Problems: (1) Failure of outpatient treatment Status: Acute (2) Lower back pain Status: Acute (3) UTI (urinary tract infection) Status: Acute Social History Problems: (1) Status post lumbar surgery Status: Acute Review of Systems all other ROS otherwise negative except for as above Objective Vital Signs Date Time Temp Pulse Resp B/P (MAP) Pulse Ox O2 Delivery O2 Flow Rate FiO2 12/23/16 07:29 36.6 53 17 148/84 (105) 95 Room Air 12/23/16 07:00 Room Air 12/23/16 03:51 36.6 54 16 134/69 (90) 99 Room Air 12/22/16 23:50 Room Air 12/22/16 23:49 36.4 59 16 123/70 (87) 95 Room Air 12/22/16 21:30 64 112/67 (82) 12/22/16 19:35 Room Air 12/22/16 19:15 36.6 59 17 139/71 (93) 99 Room Air 12/22/16 15:33 36.4 58 17 122/69 (86) 100 Room Air Physical Exam General Appearance: no apparent distress Eyes: EOMI ENT: hearing grossly normal Neck: trachea midline Respiratory/Chest: no respiratory distress, no accessory muscle use Extremities: normal range of motion 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, alert, normal mood/affect, oriented x 3 Skin: normal color, warm/dry Laboratory Results Last 24 Hours Test 12/22/16 17:39 12/22/16 20:42 12/22/16 23:47 12/23/16 03:55 Bedside Glucose 206 mg/dl 75 mg/dl 89 mg/dl 102 mg/dl Test 12/23/16 06:50 12/23/16 08:12 12/23/16 12:18 White Blood Count 9.28 K/uL Red Blood Count 3.28 M/uL Hemoglobin 9.4 g/dL Hematocrit 28.0 % Mean Corpuscular Volume 85.4 fL Mean Corpuscular Hemoglobin 28.7 pg Mean Corpuscular Hemoglobin Concent 33.6 g/dl RDW Standard Deviation 39.3 fL RDW Coefficient of Variation 12.6 % Platelet Count 453 K/uL Mean Platelet Volume 7.8 fL Bedside Glucose 101 mg/dl 175 mg/dl Assessment and Plan 66 year old female, with PMHx of CAD, HTN, dyslipidemia, T2DM, hypothyroidism, and GERD, who presents to the Emergency Room with complaints of persistent low back pain that started 5 days ago. Patient underwent multilevel lumbar decompression fusion secondary to lumbar spinal stenosis on 12/[address] Lopez. Intractable low back pain s/p multilevel lumbar decompression fusion secondary to lumbar spinal stenosis on 12/[address] Lopez: - Admitted to orthopedics services - Management as per ortho -- hopeful for success w conservative treatment (PT, steroids, pain control, time) - added gabapentin for restless legs, will try to titrate for lumbar radic sx as possible (right now since dizzy will refrain from dose escalation) - since IV site failed and pt understandably does not want new IV placed - will give scaled approach of PO pain meds - tylenol / motrin / percocet for mild/ moderate/severe LeukocytosisUTI - UCx growing gram negative bacilli and gram positive cocci - started on IV Rocephin --> transitioned to PO keflex since gram negatives are sensitive, greater chance of gram positive coverage with this pending further ID&S -- UTI w/ Klebsiella pneumoniae in 11/20/16- pansensitive restless legs -trial of gabapentin HS (see above otherwise) Constipation: Senokot BID and MiraLAX daily CAD, HTN, dyslipidemia: Continue Norvasc 5 mg daily, Atenolol 50 mg HS, Lisinopril 20 mg HS, Lipitor 40 mg HS, BP's have overall been reasonable given the situation T2DM- HgbA1C 8.1% on 09/06: - Hyperglycemia, likely secondary to IV Decadron- pharmacy consulted for diabetic management Hypothyroidism: Synthroid 75 mcg daily GERD: Continue Zantac 150 mg BID DVT prophylaxis: TEDs/SCDs; chemical anticoagulation as per ortho Code Status: LEVEL I, FULL Dispo: As per primary team
[2016-12-23] MEDS: IBUPROFEN 600 MG TAB PO PRN (15:46)
[2016-12-23] MEDS: OXYCODONE/ACETAMINOPHEN 5-325 TAB PO PRN (18:40)
[2016-12-23 20:25] VITALS: BP 159/69; PULSE 73
[2016-12-23] MEDS: AMLODIPINE BESYLATE 5 MG TAB PO SCH (20:26)
[2016-12-23] MEDS: GABAPENTIN 300 MG CAP PO SCH (20:26)
[2016-12-23] MEDS: LISINOPRIL 20 MG TAB PO SCH (20:26)
[2016-12-23] MEDS: ATORVASTATIN 40 MG TAB PO SCH (20:27)
[2016-12-23] MEDS: INSULIN GLARGINE SOLOSTAR 100 UNITS/ML 3 ML PEN SC SCH (20:41)
[2016-12-23 23:12] VITALS: BP 144/71; PULSE 62; TEMP 36.6; O2SAT 98
[2016-12-24] MEDS: KETOROLAC TROMETHAMINE 15 MG/ML VIAL IV. PRN ×2 (00:55→17:36)
[2016-12-24] MEDS: OXYCODONE/ACETAMINOPHEN 5-325 TAB PO PRN ×4 (02:54→19:27)
[2016-12-24 05:41] LABS: HEMATOCRIT 25.2 % (37-47); MEAN CELL VOLUME 84.6 fL (80-100); MEAN CORPUSCULAR HEMOGLOBIN 28.5 pg (25-34); MEAN CORPUSCULAR HGB CONC 33.7 g/dl (32-36); MEAN PLATELET VOLUME 7.5 fL (7.4-10.4); PLATELET COUNT 375 K/uL (130-400); RED BLOOD COUNT 2.98 M/uL (4.2-5.4); WHITE BLOOD COUNT 6.99 K/uL (4.8-10.8)
[2016-12-24] MEDS: LEVOTHYROXINE 75 MCG TAB PO SCH (05:48)
[2016-12-24 06:20] LABS: BUN/CREATININE RATIO 28.1 (10-20); CALCIUM 9.3 mg/dl (8.5-10.1); CREATININE 0.7 mg/dl (0.60-1.20); POTASSIUM 4.7 mmol/L (3.5-5.1)
[2016-12-24 07:16] VITALS: BP 155/62; PULSE 64; TEMP 36.8; O2SAT 99
[2016-12-24] MEDS: CEPHALEXIN MONOHYDRATE 500 MG CAP PO SCH ×4 (08:33→22:19)
[2016-12-24] MEDS: POLYETHYLENE (MIRALAX) 17 GM PACK PO SCH (08:33)
[2016-12-24] MEDS: RANITIDINE HCL 150 MG TAB PO SCH ×2 (08:33→22:14)
[2016-12-24] MEDS: INSULIN ASPART 100 UNITS/ML 3 ML PEN SC SCH ×4 (08:59→22:17)
[2016-12-24] MEDS ORDERED: KETOROLAC TROMETHAMINE 15 MG/ML VIAL IV. STA (10:34)
[2016-12-24] MEDS ORDERED: KETOROLAC TROMETHAMINE 30 MG/ML VIAL IV PRN (10:45)
--- NOTE | 2016-12-24 11:02 | Pharmacy Progress Note ---
Glycemic Control Progress Note Date of Service Dec 24, 2016. Scope Glycemic Pharmacist consulted for glycemic control to write orders per [facility] inpatient glycemic control protocol. Objective Accuchecks BSG (last 24hrs): Test 12/23/16 12:18 12/23/16 17:04 12/23/16 20:36 12/24/16 05:27 Bedside Glucose 175 mg/dl (70-90) 248 mg/dl (70-90) 253 mg/dl (70-90) Random Glucose 153 mg/dl (70-99) Test 12/24/16 08:08 Bedside Glucose 133 mg/dl (70-90) HbA1c: 8.1% on 09/06/16 Recent Pertinent Medications The patient is currently receiving: * Basal insulin: Lantus 24 units every 24 hours given at bedtime * Correctional Insulin: Novolog Correction per scale ACHS Goal Range: Low 110 mg/dL - High 140 mg/dL Correction Factor: 25 mg/dL/unit * Prandial insulin: Per carb ratio of 1 unit per 9 grams CHO consumed * Oral Agents: On hold for admission Outpatient Anti-Diabetic Meds Oral Agents Basal Insulin Assessment & Plan ASSESSMENT: * See progress note from 12/21 for more background info, in short: * 66 yo F admitted with lumbar pain, s/p multilevel lumbar decompression fusion secondary to spinal stenosis on 12/10 * She is known to our glycemic service from that admission, during which she received IV steroids and required >100 units of insulin with BSGs maintained in the 200-300 range * Pt initiated on IV insulin infusion 12/21 for severe hyperglycemia and transitioned to SQ basal bolus on 12/22 * Patient is currently receiving an average of ~ 50 units of insulin per day * 24 units of basal insulin * 24 units of prandial/correctional insulin * BSGs ranging 133 - 253 mg/dl over the past 24hrs * Changes needed to insulin regimen: * AM Fasting BSG = 133 mg/dl. This is in goal range for patient based on inpatient targets and co-morbidities. No changes needed to basal insulin * Post-prandial BSGs are elevated/BSGs rise throughout the day therefore need to tighten CF/CR PLAN FOR INPATIENT GLYCEMIC CONTROL: * Oral Agents * Continue to hold outpatient oral diabetes medications. * Basal insulin: no change * Lantus 24 units SQ HS * Bolus insulin: increase/tighten parameters * NovoLog per scale ACHS or Q6hrs while NPO * Goal Range: Low 110 mg/dL - High 140 mg/dL * Correction Factor: 20 mg/dL/unit * Nutritional / Prandial insulin per carb ratio of 1 unit per 7 grams CHO consumed * Please note that the plan above was derived based on current level of insulin resistance and hospital stress. These recommendations are appropriate for inpatient admission only. Plan of care upon discharge will need to be reassessed to avoid potential outpatient hypo/hyperglycemia. Thank you.
[2016-12-24] MEDS: LORAZEPAM 1 MG TAB PO PRN ×2 (11:23→17:35)
--- NOTE | 2016-12-24 12:37 | Progress Note ---
Progress Note Date of Service Dec 24, 2016. Progress Note Patient's improved somewhat today. She is able to and plate the halls. Still complaining some bilateral leg pain record and left. Exam she continues them straight excellent strength testing sensory symmetric and intact. MRI performed available for review does demonstrate some normal postoperative changes no evidence of any gross neural encroachment. Assessment status post lumbar decompression fusion replant this time will continue physical therapy consult occupational therapy and plan for possible [facility] tomorrow.
--- NOTE | 2016-12-24 12:46 | DIAGNOSTIC IMAGING REPORT ---
LUMBAR SPINE W/O CONTRAST CLINICAL HISTORY: 66 years-old Female with back and leg pain. Acute severe back and bilateral lower extremity pain with history of surgery 2 weeks prior. History of posterior decompression with interbody niko and screw fusion and discectomy at L3-L5. COMPARISON: Lumbar spine radiographs 12/20/2016 TECHNIQUE: Multiplanar, multi sequence MRI of the lumbar spine was performed without intravenous contrast. FINDINGS: Post surgical changes are compatible with prior laminectomy with posterior interbody niko and screw fusion and discectomy at L3-L5. 2 mm anterolisthesis of L3 on L4 appears unchanged. Ill-defined soft tissue edema is present within the paraspinal soft tissues at the surgical site with fluid collection measuring up to 1.9 x 1.7 x 5.3 cm in AP, transverse and coronal caudal dimensions respectively suggesting a small seroma. Mild amount of bone marrow edema seen surrounding the left pedicle screw at L3 may be postsurgical. No fracture or marrow replacing process. Conus medullaris terminates at the L1 level. T12-L1: No central canal or neural foraminal stenosis. L1-L2: No central canal or neural foraminal stenosis. L2-L3: Moderate facet arthrosis with ligamentum flavum redundancy is noted in conjunction with circumferential annular disc bulge. Thecal sac is narrowed to 6 mm in AP dimension resulting in moderate to severe central canal stenosis. Additionally, there is mild to moderate left foraminal narrowing. The right foramen is patent. L3-L4: Prior discectomy with interbody fusion at this level. 2 mm anterolisthesis of L3 on L4. There is a 6 x 5 mm area of low T1 and low T2 signal adjacent to the posterior lateral left aspect of the thecal sac as seen on image 18 of series 6 which may reflect micrometallic artifact or small bone fragment. Edema with probable seroma seen at this level as described above. No significant central canal narrowing. Evaluation of the foramina is limited secondary to artifact from posterior fusion hardware. No definite high-grade foraminal narrowing. L4-L5: Prior discectomy with interbody fusion at this level. Residual central disc material is noted with 4 mm caudal extrusion centrally abutting the ventral thecal sac. No significant central canal or foraminal narrowing identified. L5-S1: Small broad-based posterior disc bulge with facet arthrosis. No central canal or foraminal narrowing. IMPRESSION: 1. Post surgical changes compatible with prior laminectomy and posterior interbody niko and screw fusion and discectomy at L3-L5. 2 mm anterolisthesis of L3 on L4 is unchanged from comparison radiographs. 2. Soft tissue edema with ill-defined fluid collection seen within the posterior soft tissues abutting the posterior thecal sac suggesting seroma measuring up to 5.3 cm in craniocaudal dimension. 3. At L2-L3, moderate facet arthrosis with ligamentum flavum redundancy is noted in conjunction with circumferential annular disc bulge causing moderate to severe central canal stenosis and mild to moderate left foraminal narrowing. The above report was generated using voice recognition software. It may contain grammatical, syntax or spelling errors. Electronically signed by: Eleuterio Nolen M.D. 12/24/2016 12:44 PM Dictated Date/Time: 12/24/2016 10:15 AM
--- NOTE | 2016-12-24 14:58 | Hospitalist Progress Note ---
Hospitalist Progress Note Date of Service Dec 24, 2016. Subjective Pt evaluation today including: conversation w/ patient Pt ambulated today to BR with RN and did not have any lightheadedness. Ambulated with PT. DOing much better.Went for MRI L-spine today and showed expected post-op cahanges. Pain is improved in legs and lower back. She is more motivated to get better today. Felipe po and making urine, moving bowels Respiratory: No shortness of breath Cardiovascular: No chest pain All Other Systems: Reviewed and Negative Objective Vital Signs Date Time Temp Pulse Resp B/P (MAP) Pulse Ox O2 Delivery O2 Flow Rate FiO2 12/24/16 08:42 Room Air 12/24/16 07:16 36.8 64 17 155/62 (93) 99 Room Air 12/23/16 23:45 Room Air 12/23/16 23:12 36.6 62 14 144/71 (95) 98 Room Air 12/23/16 20:25 73 159/69 (99) 12/23/16 15:40 Room Air 12/23/16 15:26 37.2 66 17 138/66 (90) 99 Room Air Physical Exam General Appearance: WD/WN, no apparent distress Eyes: normal inspection, sclerae normal ENT: hearing grossly normal Neck: trachea midline Respiratory/Chest: lungs clear, normal breath sounds, no respiratory distress, no accessory muscle use Cardiovascular: regular rate, rhythm, no edema, no gallop, no murmur Abdomen: normal bowel sounds, non tender, soft, no organomegaly Extremities: non-tender, normal inspection, no pedal edema, no calf tenderness Neurologic/Psychiatric: alert, normal mood/affect, oriented x 3 Skin: normal color, warm/dry, no rash Laboratory Results Last 24 Hours Test 12/23/16 12:18 12/23/16 17:04 12/23/16 20:36 12/24/16 05:27 Bedside Glucose 175 mg/dl 248 mg/dl 253 mg/dl White Blood Count 6.99 K/uL Red Blood Count 2.98 M/uL Hemoglobin 8.5 g/dL Hematocrit 25.2 % Mean Corpuscular Volume 84.6 fL Mean Corpuscular Hemoglobin 28.5 pg Mean Corpuscular Hemoglobin Concent 33.7 g/dl RDW Standard Deviation 38.6 fL RDW Coefficient of Variation 12.6 % Platelet Count 375 K/uL Mean Platelet Volume 7.5 fL Sodium Level 139 mmol/L Potassium Level 4.7 mmol/L Chloride Level 104 mmol/L Carbon Dioxide Level 28 mmol/L Anion Gap 7.0 mmol/L Blood Urea Nitrogen 20 mg/dl Creatinine 0.70 mg/dl Est Creatinine Clear Calc Drug Dose 84.2 ml/min Estimated GFR () 104.6 Estimated GFR (Non- 90.3 BUN/Creatinine Ratio 28.1 Random Glucose 153 mg/dl Calcium Level 9.3 mg/dl Test 12/24/16 08:08 Bedside Glucose 133 mg/dl Assessment and Plan 66 year old female, with PMHx of CAD, HTN, dyslipidemia, T2DM, hypothyroidism, and GERD, who presents to the Emergency Room with complaints of persistent low back pain that started 5 days prior after a fall. Patient underwent multilevel lumbar decompression fusion secondary to lumbar spinal stenosis on 12/[address] Lopez. Intractable low back pain s/p multilevel lumbar decompression fusion secondary to lumbar spinal stenosis on 12/[address] Lopez- Improving today on gabapentin and with time - Admitted to orthopedics services - Management as per ortho -- hopeful for success w conservative treatment (PT, steroids, pain control, time) - added gabapentin for restless legs, will try to titrate for lumbar radic sx as possible -doing well on low dose 300mg qhs-will continue for now as had some lightheadedness -continue ibuprofen, toradol prn Leukocytosis, UTI - UCx growing E. coli and MSSA - started on IV Rocephin --> transitioned to PO keflex and will complete 7 day course, today day#5/7 -- UTI w/ Klebsiella pneumoniae in 11/20/16- pansensitive restless legs -trial of gabapentin HS (see above otherwise) Constipation: Improved -continue Senokot BID and MiraLAX daily CAD s/p MARIANNE 10+ yrs ago, HTN, dyslipidemia: stable, no current issues -Continue Norvasc 5 mg daily, Atenolol 50 mg HS, Lisinopril 20 mg HS, Lipitor 40 mg HS, BP's have overall been reasonable given the situation T2DM with hyperglycemia from steroids- HgbA1C 8.1% on 09/06. POC glucose somewhat improved but still some in the 200s - pharmacy consulted for diabetic management -continue Lantus, SSI -can return to home regimen upon discharge Hypothyroidism: TSH 0.247 in 08/2016 -continue Synthroid 75 mcg daily GERD: Continue Zantac 150 mg BID DVT prophylaxis: TEDs/SCDs; chemical anticoagulation as per ortho if desired Code Status: LEVEL I, FULL Dispo: hopefully to [facility] tomorrow
[2016-12-24 15:17] VITALS: BP 168/68; PULSE 69; TEMP 36.9; O2SAT 99
[2016-12-24] MEDS: METFORMIN HCL 500 MG TAB PO SCH (18:18)
[2016-12-24] MEDS ORDERED: INSULIN GLARGINE SOLOSTAR 100 UNITS/ML 3 ML PEN SC SCH (21:00)
[2016-12-24 22:00] VITALS: BP 151/71; PULSE 80
[2016-12-24] MEDS: ATORVASTATIN 40 MG TAB PO SCH (22:14)
[2016-12-24] MEDS: LISINOPRIL 20 MG TAB PO SCH (22:15)
[2016-12-24] MEDS: GABAPENTIN 300 MG CAP PO SCH (22:17)
[2016-12-24] MEDS: AMLODIPINE BESYLATE 5 MG TAB PO SCH (22:18)
[2016-12-24 22:55] VITALS: BP 164/76; PULSE 80; TEMP 36.7; O2SAT 98
[2016-12-25] MEDS: LORAZEPAM 1 MG TAB PO PRN ×3 (00:28→23:19)
[2016-12-25] MEDS: KETOROLAC TROMETHAMINE 15 MG/ML VIAL IV. PRN ×3 (00:28→19:08)
[2016-12-25] MEDS: OXYCODONE/ACETAMINOPHEN 5-325 TAB PO PRN ×5 (02:04→22:19)
[2016-12-25 03:08] VITALS: BP 135/72
[2016-12-25] MEDS: LEVOTHYROXINE 75 MCG TAB PO SCH (06:08)
[2016-12-25 07:34] VITALS: BP 160/68; PULSE 75; TEMP 36.8; O2SAT 98
[2016-12-25] MEDS: CEPHALEXIN MONOHYDRATE 500 MG CAP PO SCH ×4 (08:39→20:58)
[2016-12-25] MEDS: RANITIDINE HCL 150 MG TAB PO SCH ×2 (08:39→20:59)
[2016-12-25] MEDS: METFORMIN HCL 500 MG TAB PO SCH ×2 (08:39→18:36)
[2016-12-25] MEDS: POLYETHYLENE (MIRALAX) 17 GM PACK PO SCH (08:40)
[2016-12-25] MEDS: INSULIN ASPART 100 UNITS/ML 3 ML PEN SC SCH ×4 (09:06→20:56)
[2016-12-25] MEDS: IBUPROFEN 600 MG TAB PO PRN ×2 (09:22→23:19)
--- NOTE | 2016-12-25 10:12 | Discharge Instructions ---
Discharge Instructions Date of Service Dec 25, 2016. Admission Reason for Admission: Intractable Back Pain Discharge Discharge Diagnosis / Problem: lumbar stenosis Discharge Goals Goal(s): Improve function Activity Recommendations Activity Limitations: per Instructions/Follow-up section . Instructions / Follow-Up Instructions / Follow-Up ACTIVITY RECOMMENDATIONS: SELF CARE INSTRUCTIONS AFTER THORACIC/LUMBAR FUSIONS 1. You may walk to your tolerance. It is good exercise for your legs and back. Expect some back and intermittent leg aches and pains. 2. You may perform "counter-top" level activities (make a sandwich, darwin with a project, etc.). 3. No bending or lifting of more than 10 pounds or back twisting of any nature (roll like a log when turning in bed). 4. You may ride in a car for 20-30 minutes at a time. No driving until after your first visit with your doctor. 5. Frequent changes of position and restricting sitting to 30 minutes at a time will help limit the amount of back spasms and stiffness you may experience. 6. You may discontinue the use of ambulatory aids (cane, crutches, etc.) once your strength and confidence allow. 7. You may inside sales account representative the shower and let water strike your incision when you arrive home at least once daily. Do not take a tub bath, sit in a hot tub or go into a swimming pool until after your first recheck in the office. SPECIAL CARE INSTRUCTIONS: VERY IMPORTANT TO READ AND REVIEW A. Your surgical incision has been closed with a cosmetic suture under the skin that will dissolve in about 6 weeks. In 14 days, you can use a pair of clean scissors and cut the suture that is left outside of the skin at the ends of your incision. 1. The small skin tapes can be removed 7 days after surgery if they have not fallen off by that point. 2. You may keep the wound open to air as much as possible to promote healing after post-op day number 5 unless told otherwise by your doctor. 3. If you think the wound looks like it is becoming infected (redness or worsening drainage) and/or you are experiencing fever, chill or worsening back pain and muscle spasms, contact the office so that we may evaluate you as soon as possible. B. Complications are uncommon, but please contact us if you have any signs or symptoms of: 1. wound infection (fever higher than 102.5 degrees F, redness, separation of wound, drainage, or increasing pain from the incision) 2. blood clots in legs (pain, swelling, redness and warmth in legs) 3. urinary tract infection (fever higher than 102.5 degrees F, burning upon urination or increased frequency of urination) 4. nerve problems (inability to walk on your toes or heels, numbness, loss of bowel or bladder control) 5. any other symptoms that concern you C. Please call the office at if you have any concerns or questions about your operation or recovery. D. No smoking! Smoking drastically decreases the chance of a solid fusion. E. Do not take any anti-inflammatory medications (Indocin, Advil, Motrin, Aspirin, Naprosyn, etc.) as these may inhibit the chance of a solid fusion. Tylenol is okay to take for pain. MANAGING PAIN AFTER SPINAL SURGERY 1. Narcotic medication is intended for short-term use and will be provided for surgical pain. Surgical pain usually lasts for a period of 4-6 weeks. Narcotic medication includes Percocet, Vicodin, Darvocet, Tylenol #3 or Lortab. 2. Longer-term pain is more appropriately treated with non-narcotic medication such as Tylenol ES. 3. Muscle spasm is not appropriately treated with narcotics. Muscle relaxers such as Soma, Flexeril or Skelaxin can be used along with Tylenol ES. 4. Remember that we all live with some "aches and pains". This is not unusual or uncommon after an injury or as we get older. a. Back pain is expected and may include muscle spasms for 4 to 6 weeks after surgery. The pain should gradually improve. If the pain worsens for no apparent reason, please contact the office. b. Intermittent leg pain may also be experienced and should not be concerned about unless it worsens for no apparent reason. If so, please contact the office. 5. We will provide appropriate medication within the normal guidelines of their prescribed use. We will also be very cautious and aware of potential abuse and extended duration of patients' medication needs. a. Pain medications are for your comfort and to assist with sleep and rest so that the tissue can heal. They are not provided in order to return to normal activity and should not be used through the day. To do so or worsening pain at night can result from ongoing tissue damage and development of tolerance to the prescribed medicine. 6. Please allow 2-3 days to process refills. Prescriptions will not be mailed but must be picked up at the office. FOLLOW UP VISIT: Keep your scheduled follow-up appointment. Any questions, please call the office at . Current Hospital Diet Patient's current hospital diet: Diabetes Type 2 Diet Discharge Diet Recommended Diet: Regular Diet Pending Studies Studies pending at discharge: no Medical Emergencies . Who to Call and When: Medical Emergencies: If at any time you feel your situation is an emergency, please call 911 immediately. . Non-Emergent Contact Non-Emergency issues call your: Primary Care Provider . "Provider Documentation" section prepared by Jeffry Lopez. . VTE Core Measure Inpt VTE Proph given/why not?: Linnette Scales, SCD's
--- NOTE | 2016-12-25 10:22 | Discharge Summary ---
Orthopedic Discharge Summary Admission Date/Reason Dec 21, 2016 at 13:30 Intractable Back Pain. Discharge Date/Disposition Dec 25, 2016 Rehab Diagnosis Principal Diagnosis: Postoperative back and leg pain Admission Physical Exam As per Admitting History & Physical. Hospital Course Patient was admitted with worsening back and leg pain from her home. She did require a few days of bed rest and modest activity until we were able to better control should complex. After this was achieved she initiate physical therapy improved appropriately over the past few days. An MRI was obtained demonstrating no evidence of gross neural compression. Substernally she was discharged to rehabilitation. Discharge orders and instructions found on the chart for further review. Discharge Instructions Please refer to the electronic Patient Visit Report (Discharge Instructions) for additional information.
[2016-12-25] MEDS ORDERED: NURSING VERBAL MED ORDER ONE (12:00)
[2016-12-25 14:45] VITALS: Ht 165.1 cm; Wt 83.2 kg
--- NOTE | 2016-12-25 14:47 | Pharmacy Progress Note ---
Glycemic: Assessment & Plan Date of Service Dec 25, 2016. Assessment & Plan The patient is currently receiving about 63 units of insulin per day. BSGs ranging 66 - 282 mg/dl over the past 24hrs. Patient's Lantus was increased last night for hyperglycemia, but resulted in hypoglycemia this morning. I then had nurse hold carb coverage with breakfast. I will reduce Lantus back down and tighten CF and CR parameters. Test 12/24/16 16:54 12/24/16 20:22 12/25/16 07:58 12/25/16 08:23 Bedside Glucose 282 mg/dl (70-90) 223 mg/dl (70-90) 66 mg/dl (70-90) 78 mg/dl (70-90) Test 12/25/16 09:30 12/25/16 11:57 Bedside Glucose 163 mg/dl (70-90) 183 mg/dl (70-90) * Basal insulin: DECREASE: Lantus 24 units every 24 hours * Correctional Insulin: Novolog Correction per scale ACHS Goal Range: Low 110 mg/dL - High 140 mg/dL TIGHTEN: Correction Factor: 18 mg/dL/unit * Prandial insulin: TIGHTEN: Per carb ratio of 1 unit per 5 grams CHO consumed Pharmacy will continue to monitor patient daily and write orders per [facility] inpatient glycemic control protocol. Thanks. * Please note that the plan above was derived based on current level of insulin resistance and hospital stress. These recommendations are appropriate for inpatient admission only. Plan of care upon discharge will need to be reassessed to avoid potential outpatient hypo/hyperglycemia.
--- NOTE | 2016-12-25 15:11 | Hospitalist Progress Note ---
Hospitalist Progress Note Date of Service Dec 25, 2016. Subjective Pt evaluation today including: conversation w/ patient, conversation w/ family Feeling well today. Had hypoglycemia this AM and this caused her to feel weak, have blurry vision, and feel nauseated. Now improved. Pain in legs is a 2/10 at rest and increases with rolling onto her side. No CP/SOB. She is moving her bowels and maiking urine, no N/V, is jessica po. Awaiting insurance auth for discharge to [facility]. RN reports she found the atenolol from last night in the bed today and BPs were high. Atenolol given at noon today instead All Other Systems: Reviewed and Negative Objective Vital Signs Date Time Temp Pulse Resp B/P (MAP) Pulse Ox O2 Delivery O2 Flow Rate FiO2 12/25/16 07:34 36.8 75 18 160/68 (98) 98 Room Air 12/25/16 07:15 Room Air 12/25/16 03:08 135/72 (93) 12/25/16 00:20 Room Air 12/24/16 22:55 36.7 80 16 164/76 (105) 98 Room Air 12/24/16 22:00 80 151/71 (97) 12/24/16 15:25 Room Air 12/24/16 15:17 36.9 69 15 168/68 (101) 99 Room Air Physical Exam General Appearance: WD/WN, no apparent distress Eyes: normal inspection, sclerae normal ENT: hearing grossly normal Neck: trachea midline Respiratory/Chest: lungs clear, normal breath sounds, no respiratory distress, no accessory muscle use Cardiovascular: regular rate, rhythm, no edema, no gallop, no murmur Abdomen: normal bowel sounds, non tender, soft Extremities: non-tender, normal inspection, no pedal edema, no calf tenderness Neurologic/Psychiatric: alert, normal mood/affect, oriented x 3 Skin: normal color, warm/dry, no rash, + pertinent finding (incision lower back midline with steri strips and no surrounding erythema, no drainage) Laboratory Results Last 24 Hours Test 12/24/16 16:54 12/24/16 20:22 12/25/16 07:58 12/25/16 08:23 Bedside Glucose 282 mg/dl 223 mg/dl 66 mg/dl 78 mg/dl Test 12/25/16 09:30 12/25/16 11:57 Bedside Glucose 163 mg/dl 183 mg/dl Assessment and Plan 66 year old female, with PMHx of CAD, HTN, dyslipidemia, T2DM, hypothyroidism, and GERD, who presents to the Emergency Room with complaints of persistent low back pain that started 5 days prior after a fall. Patient underwent multilevel lumbar decompression fusion secondary to lumbar spinal stenosis on 12/[address] Lopez. Intractable low back pain s/p multilevel lumbar decompression fusion secondary to lumbar spinal stenosis on 12/[address] Lopez-continues to improve today on gabapentin and with time - Admitted to orthopedics services - Management as per ortho -- hopeful for success w conservative treatment (PT, steroids, pain control, time) - added gabapentin for restless legs, will try to titrate for lumbar radic sx as possible -doing well on low dose 300mg qhs-will continue for now as had some lightheadedness -continue ibuprofen, oxycodone prn -Ortho to dc to [facility] today if auth approved Leukocytosis, UTI-resolved - UCx growing E. coli and MSSA - started on IV Rocephin --> transitioned to PO keflex and will complete 7 day course, today day#09/05 -- UTI w/ Klebsiella pneumoniae in 11/20/16- pansensitive restless legs -trial of gabapentin HS (see above otherwise) Constipation: Improved -continue Senokot BID and MiraLAX daily CAD s/p MARIANNE 10+ yrs ago, HTN, dyslipidemia: stable, no current issues -Continue Norvasc 5 mg daily, Atenolol 50 mg HS, Lisinopril 20 mg HS, Lipitor 40 mg HS, BP's have overall been reasonable given the situation T2DM with hyperglycemia from steroids, now with hypoglycemia- HgbA1C 8.1% on . Hypoglycemia on higher dose of Lantus last night - pharmacy consulted for diabetic management -continue Lantus and decreased back down to 24 units for tonight, SSI -can return to home regimen upon discharge which is actually glipizide 10mg po qPM Hypothyroidism: TSH 0.247 in 08/2016 -continue Synthroid 75 mcg daily GERD: Continue Zantac 150 mg BID DVT prophylaxis: TEDs/SCDs; chemical anticoagulation as per ortho if desired Code Status: LEVEL I, FULL Dispo: hopefully to [facility] today if auth approved
[2016-12-25] MEDS ORDERED: NRN300 PO (15:15)
[2016-12-25] MEDS ORDERED: ATV1 PO (15:15)
[2016-12-25] MEDS ORDERED: NVLGIPEN SC (15:15)
[2016-12-25] MEDS ORDERED: KFL500 PO (15:15)
[2016-12-25] MEDS ORDERED: MRLP17 PO (15:15)
[2016-12-25] MEDS ORDERED: MTR600X PO (15:15)
[2016-12-25 15:38] VITALS: BP 151/70; PULSE 69; TEMP 37.1; O2SAT 99
[2016-12-25] MEDS: AMLODIPINE BESYLATE 5 MG TAB PO SCH (20:58)
[2016-12-25] MEDS: LISINOPRIL 20 MG TAB PO SCH (20:59)
[2016-12-25] MEDS: ATORVASTATIN 40 MG TAB PO SCH (20:59)
[2016-12-25] MEDS: GABAPENTIN 300 MG CAP PO SCH (20:59)
[2016-12-25] MEDS: INSULIN GLARGINE SOLOSTAR 100 UNITS/ML 3 ML PEN SC SCH (21:00)
[2016-12-25 23:05] VITALS: BP 168/72; PULSE 77; TEMP 36.8; O2SAT 100
[2016-12-26] VITALS (7 sets, daily range): BP systolic 106–186; BP diastolic 65–77; PULSE 70–91; TEMP 36.6–37.2; O2SAT 98–100
[2016-12-26] MEDS: KETOROLAC TROMETHAMINE 15 MG/ML VIAL IV. PRN ×3 (05:36→18:05)
[2016-12-26] MEDS: LORAZEPAM 1 MG TAB PO PRN ×3 (05:37→18:05)
[2016-12-26] MEDS: LEVOTHYROXINE 75 MCG TAB PO SCH (05:37)
[2016-12-26] MEDS: OXYCODONE/ACETAMINOPHEN 5-325 TAB PO PRN ×3 (07:44→20:36)
[2016-12-26] MEDS: RANITIDINE HCL 150 MG TAB PO SCH ×2 (08:56→21:26)
[2016-12-26] MEDS: CEPHALEXIN MONOHYDRATE 500 MG CAP PO SCH ×4 (08:56→21:25)
[2016-12-26] MEDS: POLYETHYLENE (MIRALAX) 17 GM PACK PO SCH (08:57)
[2016-12-26] MEDS: METFORMIN HCL 500 MG TAB PO SCH ×2 (08:57→18:05)
[2016-12-26] MEDS: INSULIN ASPART 100 UNITS/ML 3 ML PEN SC SCH ×4 (09:02→21:29)
[2016-12-26] MEDS: IBUPROFEN 600 MG TAB PO PRN ×2 (09:59→16:49)
--- NOTE | 2016-12-26 11:26 | Hospitalist Progress Note ---
Hospitalist Progress Note Date of Service Dec 26, 2016. Subjective Pt evaluation today including: conversation w/ patient Pt caught her toe on her walker this AM while turning around to use the toilet and aid had to slowly lower her to the ground onto her bottom. SHe was able to ambulate around with PT since then, but just feels stiff through her hamstrings but otherwise ok. No CP or SOB, no abd pain, no N/V. Is anxious for dc to rehab All Other Systems: Reviewed and Negative Objective Vital Signs Date Time Temp Pulse Resp B/P (MAP) Pulse Ox O2 Delivery O2 Flow Rate FiO2 12/26/16 07:40 Room Air 12/26/16 07:24 36.6 74 16 106/65 (79) 100 Room Air 12/26/16 06:15 172/77 (108) 12/26/16 05:30 36.6 70 16 186/74 (111) 100 Room Air 12/26/16 00:18 146/77 (100) 12/25/16 23:15 Room Air 12/25/16 23:05 36.8 77 16 168/72 (104) 100 Room Air 12/25/16 15:38 37.1 69 17 151/70 (97) 99 Room Air 12/25/16 15:20 Room Air Physical Exam General Appearance: WD/WN, no apparent distress Eyes: normal inspection, sclerae normal ENT: hearing grossly normal Neck: trachea midline Respiratory/Chest: lungs clear, normal breath sounds, no respiratory distress, no accessory muscle use Cardiovascular: regular rate, rhythm, no edema, no gallop, no murmur Abdomen: normal bowel sounds, non tender, soft, no organomegaly Extremities: non-tender, normal inspection, no pedal edema, no calf tenderness Neurologic/Psychiatric: alert, normal mood/affect, oriented x 3 Skin: normal color, warm/dry, no rash Laboratory Results Last 24 Hours Test 12/25/16 11:57 12/25/16 17:37 12/25/16 20:55 12/26/16 08:21 Bedside Glucose 183 mg/dl 90 mg/dl 137 mg/dl 167 mg/dl Assessment and Plan 66 year old female, with PMHx of CAD, HTN, dyslipidemia, T2DM, hypothyroidism, and GERD, who presents to the Emergency Room with complaints of persistent low back pain that started 5 days prior after a fall. Patient underwent multilevel lumbar decompression fusion secondary to lumbar spinal stenosis on 12/[address] Lopez. Intractable low back pain s/p multilevel lumbar decompression fusion secondary to lumbar spinal stenosis on 12/[address] Lopez-stable today on gabapentin, did have slow fall to ground this AM with hamstring strains but otherwise ok, ambulating - Admitted to orthopedics services - Management as per ortho -- hopeful for success w conservative treatment (PT, steroids, pain control, time) - added gabapentin for restless legs, no need to titrate up at this point but could if needed in future for lumbar radic sx as possible -doing well on low dose 300mg qhs -continue ibuprofen, oxycodone prn -Ortho to dc to SNF today if auth approved, [facility] rehab denied Leukocytosis, UTI-resolved - UCx growing E. coli and MSSA - started on IV Rocephin --> transitioned to PO keflex and will complete 7 day course, today day#7 -- UTI w/ Klebsiella pneumoniae in 11/20/16- pansensitive restless legs -trial of gabapentin HS (see above otherwise) Constipation: Improved -continue Senokot BID and MiraLAX daily CAD s/p MARIANNE 10+ yrs ago, HTN, dyslipidemia: BPs improved now, no current issues -Continue Norvasc 5 mg daily, Atenolol 50 mg HS, Lisinopril 20 mg HS, Lipitor 40 mg HS T2DM with hyperglycemia from steroids, then with hypoglycemia, now iproved with lowering dose of Lantus back to home dose of 24 units, glyburide has been held from home- HgbA1C 8.1% on 09/06, ucontrolled. Pt reports lost 200 lbs on Nutrisystem in the past few years, but then gained about 30 lbs back. Plans on going back on it after dc from SNF. - pharmacy consulted for diabetic management -continue Lantus 24 units, SSI -would recommend not restarting glyburide on discharge given hypoglycemia, can simply titrate Lantus and then hopeful for weight loss and dietary changes to control glucose further as outpt-discussed with pt and she will f/u with PCP Hypothyroidism: TSH 0.247 in 08/2016 -continue Synthroid 75 mcg daily GERD: Continue Zantac 150 mg BID DVT prophylaxis: TEDs/SCDs; chemical anticoagulation as per ortho if desired Code Status: LEVEL I, FULL Dispo:to SNF today if auth approved
--- NOTE | 2016-12-26 12:08 | Pharmacy Progress Note ---
Glycemic Control Progress Note Date of Service Dec 26, 2016. Scope Glycemic Pharmacist consulted for glycemic control to write orders per [facility] inpatient glycemic control protocol. Objective Accuchecks BSG (last 24hrs): Test 12/25/16 17:37 12/25/16 20:55 12/26/16 08:21 Bedside Glucose 90 mg/dl (70-90) 137 mg/dl (70-90) 167 mg/dl (70-90) Recent Pertinent Medications The patient is currently receiving: * Basal insulin: Lantus 24 units every 24 hours given at bedtime * Correctional Insulin: Novolog Correction per scale ACHS Goal Range: Low 110 mg/dL - High 140 mg/dL Correction Factor: 18 mg/dL/unit * Prandial insulin: Per carb ratio of 1 unit per 5 grams CHO consumed * Oral Agents: On hold for admission Assessment & Plan ASSESSMENT: * See progress note from 12/21 for more background info, in short: * 66 yo F admitted with lumbar pain, s/p multilevel lumbar decompression fusion secondary to spinal stenosis on 12/10 * She is known to our glycemic service from that admission, during which she received IV steroids and required >100 units of insulin with BSGs maintained in the 200-300 range * Pt initiated on IV insulin infusion 12/21 for severe hyperglycemia and transitioned to SQ basal bolus on 12/22 * Patient is currently receiving an average of ~ 50 units of insulin per day * 24 units of basal insulin * 24 units of prandial/correctional insulin * BSGs ranging 90 - 167 mg/dl over the past 24hrs * Changes needed to insulin regimen: * AM Fasting BSG = 167 mg/dl. This is slightly above goal range for patient based on inpatient targets and co-morbidities. However, patient had a low with Lantus 28 units, hesitant to increase basal insulin at this time. * Post-prandial BSGs are in range, no change needed to CF/CR PLAN FOR INPATIENT GLYCEMIC CONTROL: * Oral Agents * Continue Metformin 1,000mg PO BIDM * Will not resume glipizide in house secondary to high risk of hypo * Basal insulin: no change * Lantus 24 units SQ HS * Bolus insulin: no change * NovoLog per scale ACHS or Q6hrs while NPO * Goal Range: Low 110 mg/dL - High 140 mg/dL * Correction Factor: 18 mg/dL/unit * Nutritional / Prandial insulin per carb ratio of 1 unit per 5 grams CHO consumed * Please note that the plan above was derived based on current level of insulin resistance and hospital stress. These recommendations are appropriate for inpatient admission only. Plan of care upon discharge will need to be reassessed to avoid potential outpatient hypo/hyperglycemia. Thank you.
[2016-12-26] MEDS ORDERED: LOPERAMIDE LIQUID 1MG/7.5ML 120ML BTL PO PRN (21:15)
[2016-12-26] MEDS: GABAPENTIN 300 MG CAP PO SCH (21:25)
[2016-12-26] MEDS: AMLODIPINE BESYLATE 5 MG TAB PO SCH (21:25)
[2016-12-26] MEDS: ATORVASTATIN 40 MG TAB PO SCH (21:25)
[2016-12-26] MEDS: LISINOPRIL 20 MG TAB PO SCH (21:26)
[2016-12-26] MEDS: INSULIN GLARGINE SOLOSTAR 100 UNITS/ML 3 ML PEN SC SCH (21:30)
[2016-12-27] MEDS: LORAZEPAM 1 MG TAB PO PRN ×2 (00:12→06:17)
[2016-12-27] MEDS: KETOROLAC TROMETHAMINE 15 MG/ML VIAL IV. PRN ×2 (00:12→06:17)
[2016-12-27] MEDS: OXYCODONE/ACETAMINOPHEN 5-325 TAB PO PRN ×2 (02:24→07:50)
[2016-12-27] MEDS: IBUPROFEN 600 MG TAB PO PRN (04:51)
[2016-12-27] MEDS: LEVOTHYROXINE 75 MCG TAB PO SCH (05:41)
[2016-12-27 07:18] VITALS: BP 137/73; PULSE 75; TEMP 36.9; O2SAT 100
[2016-12-27 08:05] VITALS: BP 147/71; PULSE 67; TEMP 36.8; O2SAT 99
[2016-12-27] MEDS: POLYETHYLENE (MIRALAX) 17 GM PACK PO SCH (08:13)
[2016-12-27] MEDS: METFORMIN HCL 500 MG TAB PO SCH (08:14)
[2016-12-27] MEDS: RANITIDINE HCL 150 MG TAB PO SCH (08:14)
[2016-12-27] MEDS: INSULIN ASPART 100 UNITS/ML 3 ML PEN SC SCH (09:29)
[2016-12-27 09:31] LABS: BASO % 0.8 %; BASO ABS # 0.04 K/uL (0-0.2); COMPLETE YES; EOS % 3.9 %; HEMATOCRIT 27.5 % (37-47); IG% 0.6 %; LYMPH % 21.1 %; LYMPH ABS # 1.04 K/uL (1.2-3.4); MEAN CELL VOLUME 84.9 fL (80-100); MEAN CORPUSCULAR HGB CONC 34.2 g/dl (32-36); MEAN PLATELET VOLUME 7.6 fL (7.4-10.4); MONO % 8.3 %; NEUT % 65.3 %; PLATELET COUNT 345 K/uL (130-400); RED BLOOD COUNT 3.24 M/uL (4.2-5.4); WHITE BLOOD COUNT 4.92 K/uL (4.8-10.8)
[2016-12-27 09:51] LABS: CALCIUM 9.4 mg/dl (8.5-10.1); CREATININE 0.79 mg/dl (0.60-1.20); MAGNESIUM 1.8 mg/dl (1.8-2.4); POTASSIUM 4.8 mmol/L (3.5-5.1)
--- NOTE | 2016-12-27 13:55 | Progress Note ---
Progress Note Date of Service Dec 27, 2016. Progress Note Patient is improving dramatically. She is ambulating well socially was determined ability discharge home with home health.
[2016-12-27] MEDS ORDERED: INSULIN GLARGINE SOLOSTAR 100 UNITS/ML 3 ML PEN SC SCH (17:15)
== END 2016-12-27 10:27 | disposition home health service (06) | DRG 948 ==
LOC: EDBD 14:44 → C.EDB 14:45 → C.3E 15:52 → ENRESERV 16:43 → UNDOADMOB 17:55 → C.3E 17:55 → OBSVTOIN 12-21 13:30
PROVIDERS: ADMIT Orthopaedic Surgery Orthopaedic Surgery of the Spine; ATTEND Family Medicine
DX: G89.18 Other acute postprocedural pain (principal); N39.0 Urinary tract infection, site not specified; M54.5 Low back pain; I25.10 Atherosclerotic heart disease of native coronary artery without angina pectoris; I10 Essential (primary) hypertension; E78.5 Hyperlipidemia, unspecified; E11.9 Type 2 diabetes mellitus without complications; E03.9 Hypothyroidism, unspecified; K21.9 Gastro-esophageal reflux disease without esophagitis; G25.81 Restless legs syndrome; K59.00 Constipation, unspecified; Z98.1 Arthrodesis status; Z79.4 Long term (current) use of insulin; Z79.82 Long term (current) use of aspirin; Z79.84 Long term (current) use of oral hypoglycemic drugs; Z79.899 Other long term (current) drug therapy

== ENCOUNTER → 2017-07-26 | Outpatient (CLI) | payer OTHER ==
[~2017-07-26] MED LIST changes: -ASPEC81 PO; +ASPI-320 PO; +ATV1 PO; -GLC5 PO; +KFL500 PO; +MRLP17 PO; +MTR600X PO; +NRN300 PO; +NVLGIPEN SC; +RANI150T85 PO; -ZNTT/150 PO
[2017-07-26 13:12] LABS: HEMOGLOBIN A1C 9.9 % (4.5-5.6)
[2017-07-26 13:29] LABS: ALT/SGPT 17 U/L (12-78); BLOOD UREA NITROGEN 22 mg/dl (7-18); CALCIUM 9.6 mg/dl (8.5-10.1); CARBON DIOXIDE 26 mmol/L (21-32); CHOLESTEROL 146 mg/dl (0-200); CREATININE 1.12 mg/dl (0.60-1.20); GLUCOSE 96 mg/dl (70-99); POTASSIUM 4.2 mmol/L (3.5-5.1); SODIUM 137 mmol/L (136-145)
[2017-07-26 13:39] LABS: LDL CHOLESTEROL (DIRECT) 94 mg/dl
== END | disposition home or self-care (01) ==
LOC: C.LABMFLN 09:30
PROVIDERS: ATTEND Family Medicine
DX: E11.9 Type 2 diabetes mellitus without complications (principal); E78.01 Familial hypercholesterolemia; I10 Essential (primary) hypertension; E03.9 Hypothyroidism, unspecified; E55.9 Vitamin D deficiency, unspecified